=== PATIENT | female | born 1990 | race Caucasian/White ===

== ENCOUNTER → 2020-06-16 15:00 | Outpatient (BNVA) | payer BC, SELFPAY | PROVIDERS: Visit Provider Obstetrics & Gynecology | DX: Z12.4 Encounter for screening for malignant neoplasm of cervix (principal); R10.2 Pelvic and perineal pain | CPT/HCPCS: 88175 ==

== ENCOUNTER → 2020-06-26 13:47 | Outpatient (BNVA) | payer BC, SELFPAY | PROVIDERS: Visit Provider Obstetrics & Gynecology | DX: R10.2 Pelvic and perineal pain (principal) | CPT/HCPCS: 76830 ==

== ENCOUNTER → 2020-08-20 08:30 | Outpatient (BNVA) | payer BC, SELFPAY | PROVIDERS: Visit Provider Obstetrics & Gynecology | DX: Z30.9 Encounter for contraceptive management, unspecified (principal); E66.9 Obesity, unspecified | CPT/HCPCS: 81025; 83525; 84443 ==

== ENCOUNTER → 2021-05-14 11:33 | Outpatient (BNVA) | payer BC, SELFPAY | PROVIDERS: Visit Provider Obstetrics & Gynecology | DX: N92.6 Irregular menstruation, unspecified (principal) | CPT/HCPCS: 84702 ==

== ENCOUNTER → 2021-06-23 10:25 | Outpatient (BNVA) | payer BC, MEDICAID, SELFPAY | PROVIDERS: Visit Provider Obstetrics & Gynecology | DX: Z32.01 Encounter for pregnancy test, result positive (principal) | CPT/HCPCS: 84702 ==

== ENCOUNTER 2022-02-15 05:23 | Inpatient (IN) | payer BC, MEDICAID, SELFPAY ==
--- NOTE | 2022-01-19 11:53 | ANES.PREANE2 ---
Pre-Anesthetic Assessment Height/Weight: Height 1.63 m Operation Date: 02/15/22 07:00 Proposed Procedures p Section Repeat(Not Applicable) - Fred Gilmore MD Familial anesthetic complications: none Was Beta Hugo taken within 24 hours: N/A Was Clonidine taken within 24 hours: N/A Social Tobacco and No alcohol Exam alert, oriented x 3 and regular rate & rhythm Airway Submandibular: within normal limits Cervical ROM: within normal limits Mallampati: Class II Dentition: chipped Pulmonary Chronic Obstructive Pulmonary Disease Anesthetic Plan ASA status: 2 Anesthesia: Regional (specify below) (SAB) Medications/Allergies Home Medications Medication Instructions Recorded Confirmed Last Taken Type venlafaxine 150 mg 150 mg PO DAILY 09/10/20 02/27/21 Unknown History capsule,extended release 24 hr (Effexor XR) dicyclomine 10 mg capsule 10 mg PO TID #90 caps 02/27/21 02/27/21 Unknown Rx norgestrel 0.3 mg-ethinyl 1 tab PO DAILY #28 tabs 02/27/21 02/27/21 Unknown Rx estradiol 30 mcg tablet (Low-Ogestrel (28)) phentermine 37.5 mg capsule 37.5 mg PO DAILY #14 caps 02/27/21 02/27/21 Unknown Rx Allergies Allergy/AdvReac Type Severity Reaction Status Date / Time No Known Allergies Allergy Verified 06/23/21 10:42 [facility] Anesthesia Medical History Anxiety Cervical cancer screening Depression History of melanoma 2017 Surgical History History of 2019 Family History Mother Cancer kidney cancer, skin cancer Father Cancer esophageal cancer Grandfather Cancer colon cancer, maternal Family/Other Cancer maternal uncle, lung cancer spread to bone Denies family history of Diabetes Hyperlipidemia Chronic kidney disease (CKD) Anesthesia complication Bleeding disorder Hypertension Stroke Data Anesthesia Cardiac Studies: No Data to Display
[2022-02-15] VITALS (35 sets, daily range): BP systolic 109–138; BP diastolic 58–91; PULSE 63–88; RESP 16–18; TEMP 36–36.7; O2SAT 90–100; BMI 34.2
[2022-02-15] MEDS: lactated ringers 1,000 ML 999 ML IV ×2 (05:54→06:55)
[2022-02-15 06:04] LABS: Basophils % 0.2 %; Eosinophils # 0.1 10^3/uL (0.0-0.8); Eosinophils % 0.9 %; Hematocrit 33.9 % (37.0-47.0); Lymphocytes # 3.1 10^3/uL (0.8-4.8); Lymphocytes % 24.1 %; Mean Corpuscular HGB Conc 32.4 g/dL (30.0-36.0); Mean Corpuscular Hemoglobin 25.6 pg (28.0-34.0); Mean Platelet Volume 10.4 fL (7.4-10.4); Monocytes # 0.7 10^3/uL (0.2-0.9); Monocytes % 5.2 %; Neutrophils # 8.82 10^3/uL (1.8-7.7); Nucleated Red Blood Cells % 0 %; Platelet Count 325 10^3/cmm (130-400); Red Blood Count 4.29 10^6/uL (4.1-5.3); Red Cell Distribution Width 14.7 % (12.1-15.1); White Blood Count 12.8 10^3/uL (4.0-10.0)
--- NOTE | 2022-02-15 06:43 | P.HP_ITS ---
Providers/Chief Complaint Admitting Physician: Fred Gilmore MD Chief Complaint: EDC 02/18/22 HPI TITLE CHECKER History of Present Illness Irene Macdonald is a 31 year old 2 para 0-1-0-1 female at 39 weeks estimated gestational age presenting for a repeat section. has been unremarkable. We discussed the risks and benefits of a versus a repeat section. After discussing the risks and benefits of each she decided to proceed with a repeat section. Her labs been largely unremarkable. Her blood type is B+ her antibody screen is negative she is rubella immune. The remainder of her infectious disease panel was within normal limits. Present Details : 2 Para: 1 Review of Systems General: Reports: 10 or more systems reviewed and unremarkable except in HPI and below Const: Reports: fatigue; Denies: fever(s) Eyes: Denies: change in vision Card: Denies: chest pain Musc: Reports: back pain You/Lymph: Denies: easy bruising Medications/Allergies Home Medications Medication Instructions Recorded Confirmed Last Taken Type escitalopram oxalate 20 mg tablet mg 02/15/22 Unknown History Allergies Allergy/AdvReac Type Severity Reaction Status Date / Time No Known Allergies Allergy Verified 06/23/21 10:42 PFSH TITLE CHECKER PFSH: Medical History (Updated 02/15/22 @ 06:54 by Fred Gilmore MD) Anxiety Cervical cancer screening Depression History of melanoma 2018 Surgical History (Updated 02/15/22 @ 06:53 by Fred Gilmore MD) History of 2019 Family History Mother Cancer kidney cancer, skin cancer Father Cancer esophageal cancer Grandfather Cancer colon cancer, maternal Family/Other Cancer maternal uncle, lung cancer spread to bone Denies family history of Diabetes Hyperlipidemia Chronic kidney disease (CKD) Anesthesia complication Bleeding disorder Hypertension Stroke Other Female Reproductive History: Hx Age of Menarche: 14 History History History 1 Term 0 1 Miscarriages/Ectopic 0 Living Children 1 Vitals/I&O/Wt Last Vital Signs Pulse 71 02/15/22 06:07 BP 119/73 02/15/22 06:07 O2 Del Method 02/15/22 05:21 Weight last 48 hrs Weight 193 lb Physical Exam Const: COMMON NORMALS: patient oriented x3 and alert HENMT: COMMON NORMALS: moist oral mucous membranes HEAD & SCALP: normal to inspection Chest: COMMONS NORMALS: normal inspection of the chest Resp: COMMON NORMALS: clear to auscultation bilaterally AUSCULTATION: clear to auscultation bilaterally Cardio: COMMON NORMALS: regular rate and regular rhythm RATE: regular rate RHYTHM: regular rhythm GI: INSPECTION: Yes normal to inspection and Yes other (Gravid) Extremity: COMMON NORMALS: normal to inspection GENERAL: Yes edema (Trace) Neuro: COMMON NORMALS: patient oriented x3, moves all extremities and no sensory deficits noted SENSORIUM/ORIENTATION: Yes alert Psych: COMMON NORMALS: mental status grossly normal Skin: COMMON NORMALS: no rashes or lesions noted GENERAL SKIN EXAM: no rashes or lesions noted Data : 02/15/22 05:48 A&P Assessment and plan (1) History of : We will proceed with a repeat section. We have discussed the risks including the risks of bleeding, infection, and damage to intra-abdominal organs. She understands these risks and wishes to proceed. (2) Depression with anxiety: Currently on Lexapro. We will continue her medication when she is taking p.o. postoperatively due to her high risk of depression. (3) 39 weeks gestation of : (4) Tobacco use affecting in third trimester, antepartum: I will continue to encourage the patient to stop smoking. We discussed ways to help her stop smoking multiple times during her . Attestations Medical Necessity Statement*: I anticipate routine and post C- section care Coding Level of Care Code Acute Assistant Teacher Primary for Leonard Cooper Diagnoses History of Z98.891 Depression with anxiety F41.8 39 weeks gestation of Z3A.39 Tobacco use affecting in third trimester, antepartum O99.333
[2022-02-15] MEDS: metoclopramide 5 mg/mL SDV 2 mL 10 MG IVP (06:52)
[2022-02-15] MEDS: famotidine 20 mg/2 mL INJ IVP (06:52)
[2022-02-15] MEDS: citric acid-sodium citrate 30 mL UDC PO (06:52)
--- NOTE | 2022-02-15 06:55 | P.ANESUD_ITS ---
Pre-Anesthetic Update Pre-Anesthetic Assessment: Date of Surgery/Procedure: 02/15/22 Preop Jennifer gnosis: IUP Proposed Procedure: Operation Date: 02/15/22 07:00 Proposed Procedures p Section Repeat(Not Applicable) - Fred Gilmore MD Any changes to Pre-Anesthetic Assessment?: No Last Intake: 00:00 Labs Last 48hrs: Short CBC 02/15/22 Range/Units 05:48 WBC 12.8 H (4.0-10.0) 10^3/ uL Hgb 11.0 L (11.5-15.3) g/dL Hct 33.9 L (37.0-47.0) % MCV 79.0 L (81-99) fl Plt Count 325 (130-400) 10^3/c mm Neut % (Auto) 69.0 % Neut # (Auto) 8.82 H (1.8-7.7) 10^3/u L Vitals: Pulse Rate 71 02/15/22 06:07 Pulse Rhythm 02/15/22 05:21 Pulse Strength 3+ Normal 02/15/22 05:21 Respiratory Rate 16 02/15/22 05:31 Respiratory Effort Non-Labored 02/15/22 05:21 Respiratory Depth Normal 02/15/22 05:21 Respiratory Patter n 02/15/22 05:21 Blood Pressure 119/73 02/15/22 06:07 Oxygen Delivery Me thod 02/15/22 05:21 Exam: Pre-Anes Outpt Exam: alert, oriented x 3, clear to auscultation bilaterally and regular rate & rhythm Cardiac Studies: No Data to Display
[2022-02-15] MEDS: ceFAZolin 2,000 MG in sodium chloride 0.9% (plus) 50 ML 100 MG IV (06:56)
--- NOTE | 2022-02-15 08:30 | P.OP_ITS ---
Operative Report Date of procedure: February 15, 2022 Pre-op diagnosis: 31-year-old 2 female at 39 weeks estimated gestational age presenting for a repeat section Post-op diagnosis: Status post section Procedure done: Lower transverse section Specimens removed/disposition: 1. Female infant with a weight of 10 ounces and Apgars of 8 and 9 2. Placenta with a three-vessel cord delivered intact Surgeon: Fred Gilmore Estimated blood loss (mL): 800 Procedure: The patient was brought back to the operating room where she was prepped and draped in usual sterile fashion. Anesthesia was found to be adequate. A lower transverse skin incision was then made with a #10 blade. I then dissected down to the underlying subcutaneous tissue until arriving at the prerectal fascia. The fascia was then nicked with the scalpel bilaterally. The fascial incisions were then carried laterally with Almanzar scissors. Attention was then turned to the superior aspect of the incision which was grasped with kochers and tented up away from the underlying rectus abdominis muscles. The muscles were then dissected away from the fascia manually, and later with Almanzar scissors. Attention was then turned to the inferior aspect of the incision, and the fascia was dissected away from the underlying muscle in similar fashion. The rectus abdominis muscles were then spread manually. The peritoneum was entered manually. Excellent visualization of the uterus was noted. A lower transverse uterine incision was then made with a #10 blade. Upon arriving at the intrauterine cavity, the uterine incision was then extended manually. The infant was noted to be in vertex position. The baby was delivered without difficulty. After delivery of the head, the mouth and nose were suctioned at the site of the incision. Light meconium was noted. There was no nuchal cord. The remainder of the body was then delivered and placed on the abdomen. The cord was cut and clamped. The baby was then handed to the waiting nurse. The placenta was removed intact. The uterus was externalized. The intrauterine cavity was cleansed of any remaining debris. The uterine incision was reapproximated in 2 layers. The first layer was performed with 0 Vicryl in a running locked stitch. The second layer was an imbricating stitch also using 0 Vicryl. There were several areas along the incision that continued to bleed. Several [id number] stitches were placed until excellent hemostasis was noted. The uterus was replaced into the abdomen. The peritoneum was then irrigated with warm saline. I reexamined the uterine incision and found it to be hemostatic. The rectus abdominis muscles were then reapproximated using 0 Vicryl in a running stitch. The fascia was then reapprox imated using 0 Vicryl in running stitch. The subcutaneous tissue was reapproximated using 0 Vicryl in a running stitch. The skin was reapproximated using nuria. A sterile dressing was placed. All counts were correct x2. Both the mother and baby were in stable condition.
[2022-02-15] MEDS: docusate sodium 100 mg Capsule PO ×2 (11:40→18:07)
[2022-02-15] MEDS: escitalopram 10 mg Tablet 20 MG PO (11:41)
[2022-02-15] MEDS: acetaminophen 325 mg Tablet 650 MG PO (11:41)
--- NOTE | 2022-02-15 13:45 | PC.NURSE ---
This nurse assisted pt with changing her gown and placing new chux pads underneath her. As this nurse was removing the extra blankets on the patient a small black square box fell out of the blankets. This nurse asked pt what is was. Pt reported it was a vape. As nurse was turning pt side to side changing chux pads out another white vape pen was found in the patients bed. This nurse informed pt that vapes are prohibited in the hospital and that I would have to lock the vapes up in a secured cabinet. I educated pt that if someone wanted to take the vapes out to her car that would be fine too, but they cannot be in the hospital. Pt verbalized understanding.
[2022-02-15] MEDS: ketorolac 30 mg/mL INJ IVP ×2 (14:38→21:02)
[2022-02-15] MEDS: dextrose 5%-lactated ringers 1,000 ML 125 ML IV (14:39)
[2022-02-15] MEDS: HYDROcodone-acetaminophen 5-325 mg Tablet PO (18:06)
[2022-02-15 21:20] LABS: Hemoglobin 8.5 g/dL (11.5-15.3); Mean Corpuscular HGB Conc 32.7 g/dL (30.0-36.0); Mean Corpuscular Hemoglobin 26.3 pg (28.0-34.0); Mean Corpuscular Volume 80.5 fl (81-99); Mean Platelet Volume 9.9 fL (7.4-10.4); Platelet Count 236 10^3/cmm (130-400); Red Blood Count 3.23 10^6/uL (4.1-5.3); Red Cell Distribution Width 14.6 % (12.1-15.1); White Blood Count 11.1 10^3/uL (4.0-10.0)
--- NOTE | 2022-02-15 22:00 | PC.NURSE ---
Patient walked one lap around the OB unit and tolerated it well. She was then helped to the bathroom to change her gown and clean up. I instructed her that we will walk another lap in an hour or so and then if she tolerates it well we can remove her catheter as her urine output has been normal so far this shift. Patient was educated on increasing her fluid intake and verbalized understanding and is doing well at this time.
--- NOTE | 2022-02-16 00:55 | PC.NURSE ---
Patient pushed her call light and when the nurse walked got into the room and said that her IV got pulled out. I helped her take the tape off the rest of the way and put the catheter in the biohazard box. Catheter was intact upon removal.
--- NOTE | 2022-02-16 01:30 | PC.NURSE ---
Patient pushed her call light and said that she is still struggling to get baby to latch on for breast feeding. This nurse has witnessed mother attempt to feed baby with different positions and baby will latch for a couple seconds and then begin crying again. I educated her on making sure that baby is awake even if she has to undress baby temporarily. She verbalized understanding. After attempting to help baby latch for a while I took a handle breast pump into the room and let mom know she can try to express some milk and use a syringe to put against her breast during breast feeding to help baby stay latched. She agreed. She also asked if it would be okay to supplement with some formula as she is worried baby will go hungry. I took some formula into her room.
[2022-02-16 02:20] VITALS: BP 113/71; PULSE 88; RESP 18; TEMP 36.6
[2022-02-16] MEDS: HYDROcodone-acetaminophen 5-325 mg Tablet PO ×4 (02:20→16:39)
--- NOTE | 2022-02-16 02:20 | PC.NURSE ---
Lara catheter removed at this time patient tolerated procedure well
[2022-02-16] MEDS: prenatal vitamin Capsule 1 CAP PO (07:42)
[2022-02-16] MEDS: ferrous sulfate EC 325 mg Tablet PO (07:42)
--- NOTE | 2022-02-16 07:43 | PM.OBGYDC ---
Discharge Providers WIRELESS RETAIL MANAGER Date of Admission: 02/15/22 05:23 Date of Discharge: 02/16/22 Attending Provider at Admission: Fred Gilmore MD Attending Provider at Discharge: Fred Gilmore MD Diagnoses at Discharge Discharge Diagnosis (1) History of : Status: Acute Permanent problem details: 2020 (2) Depression with anxiety: Status: Acute (3) 39 weeks gestation of : Status: Acute (4) Tobacco use affecting in third trimester, antepartum: Status: Acute Reason for Visit Reason for Visit: EDC 02/18/22 Hospital Course Hospital Course Patient presented to the hospital for a scheduled repeat section. The was unremarkable. The patient's course was also unremarkable. She has been breast-feeding during her hospital stay. Her pain has been well controlled. Her bleeding has been within normal limits. Information Peripartum Data: Delivery Method: Physical Exam Narrative: She is in no acute distress Lungs are clear auscultation bilaterally Her heart has a regular rate and rhythm Her fundus is below the umbilicus and firm Her dressing is clean, dry and intact Her extremities have trace edema Urinary Catheter Management: Lara: Cath Placed During This Visit: yes, but has since been removed by the nurse Reason for Continuing Indwelling Catheter: Decision to DC Catheter Urinary Catheter Date of Insertion: 02/15/22 Urinary Catheter Time of Insertion: 07:12 Date Urinary Catheter Removed: 02/16/22 Time Urinary Catheter Discontinued: 02:20 History History History 1 Term 0 1 Miscarriages/Ectopic 0 Living Children 1 Discharge Data Studies Completed and Pending Pending at discharge Category Date Time Status CBC Auto Diff [Complete Blood Count w/Auto] Routine Lab 02/16/22 13:41 Ordered Laboratory Results WBC 11.1 10^3/uL (4.0-10.0) H 02/15/22 21:00 RBC 3.23 10^6/uL (4.1-5.3) L 02/15/22 21:00 Hgb 8.5 g/dL (11.5-15.3) L 02/15/22 21:00 Hct 26.0 % (37.0-47.0) L 02/15/22 21:00 MCV 80.5 fl (81-99) L 02/15/22 21:00 MCH 26.3 pg (28.0-34.0) L 02/15/22 21:00 MCHC 32.7 g/dL (30.0-36.0) 02/15/22 21:00 RDW 14.6 % (12.1-15.1) 02/15/22 21:00 Plt Count 236 10^3/cmm (130-400) 02/15/22 21:00 MPV 9.9 fL (7.4-10.4) 02/15/22 21:00 Neut % (Auto) 69.0 % 02/15/22 05:48 Lymph % (Auto) 24.1 % 02/15/22 05:48 [place] % (Auto) 5.2 % 02/15/22 05:48 Eos % (Auto) 0.9 % 02/15/22 05:48 Baso % (Auto) 0.2 % 02/15/22 05:48 Neut # (Auto) 8.82 10^3/uL (1.8-7.7) H 02/15/22 05:48 Lymph # (Auto) 3.1 10^3/uL (0.8-4.8) 02/15/22 05:48 [place] # (Auto) 0.7 10^3/uL (0.2-0.9) 02/15/22 05:48 Eos # (Auto) 0.1 10^3/uL (0.0-0.8) 02/15/22 05:48 Baso # (Auto) 0.0 10^3/uL (0.0-0.1) 02/15/22 05:48 Nucleated RBC % (auto) 0 % 02/15/22 05:48 Nucleated RBCs # 0.0 /100WBC 02/15/22 05:48 Vitals Last Vital Signs Temp 97.9 F 02/16/22 02:20 Pulse 88 02/16/22 02:20 Resp 18 02/16/22 02:20 BP 113/71 02/16/22 02:20 Pulse Ox 97 02/15/22 23:00 O2 Del Method 02/15/22 23:00 Discharge Plan Discharge Patient Disposition: Home Condition: Stable Prescriptions: New hydrocodone-acetaminophen 5-325 mg Tablet 1 tab PO Q6H PRN (Reason: Moderate To Severe Pain) Qty: 28 0RF docusate sodium 100 mg Capsule 100 mg PO BID Qty: 10 0RF ibuprofen 800 mg Tablet 800 mg PO Q8H Qty: 45 0RF -U 106.5-1 mg Capsule 1 cap PO BREAKFAST Qty: 100 0RF Continued escitalopram oxalate 20 mg tablet 20 mg PO DAILY Discharge Orders: Discharge Order (Routine); Ordered 02/16/22 Ordered By: Fred Gilmore Referrals: Fred Gilmore MD [Physician] - 4-7 days Discharge Diet: Usual diet Discharge Activity: Limit activity as instructed Patient Instructions: Opioid Safety Discharge Attestations WIRELESS RETAIL MANAGER Time Spent in Discharge Care*: less than 30 min Coding Level of Care Code Acute Car Pre Cooler for g Fwd Diagnoses History of Z98.891 Depression with anxiety F41.8 39 weeks gestation of Z3A.39 Tobacco use affecting in third trimester, antepartum O99.333
[2022-02-16] MEDS: escitalopram 10 mg Tablet 20 MG PO (10:12)
[2022-02-16] MEDS: ibuprofen 800 mg tablet PO ×2 (10:12→15:51)
[2022-02-16] MEDS: docusate sodium 100 mg Capsule PO (10:12)
[2022-02-16 10:15] VITALS: BP 134/64; PULSE 79; TEMP 36.6
--- NOTE | 2022-02-16 12:57 | PC.NURSE ---
Patient reported that she was able to latch infant independently. Infant was noted to be latched with wide mouth and large jaw movements. Patient reported that latch was comfortable.
--- NOTE | 2022-02-16 14:02 | PC.NURSE ---
1235 This personal lines underwriter took pt towels and soap and set up shower with shower chair for patient to take shower. Educated patient on incision care. Pt verbalized understanding. Pt requested pain medication at this. Pt given 2 [place]. Told pt that I would be back after her shower to draw her blood. Returned to pt room at 1340 to draw her blood. Pt was still in bed in the same place she has been since I arrived at 0700. Collected CBC and took baby to the nursery so that patient may shower. Educated patient to push her call light when she was finished and educated her where the call light cord pull was in the shower in case she needed help. Pt verbalized understanding. At 1400 Damon Michael RN entered pt room to check on her and she was still in bed and was talking on her phone. At 1410 baby was taken back to mothers room due to being fussy and showing hunger cues. Patient was still in bed at this time. Damon Michael RN educated pt to get up out of bed and to chair to feed baby. Pt was educated about getting out of bed every 2-3 hours and walking around to prevent post operative complications especially since pt had a DVT with her previous . Pt verbalized understanding.
[2022-02-16 14:10] LABS: Basophils % 0.1 %; Eosinophils # 0.1 10^3/uL (0.0-0.8); Eosinophils % 0.4 %; Hematocrit 28.8 % (37.0-47.0); Hemoglobin 9.1 g/dL (11.5-15.3); Lymphocytes # 2.4 10^3/uL (0.8-4.8); Lymphocytes % 17.6 %; Mean Corpuscular HGB Conc 31.6 g/dL (30.0-36.0); Mean Corpuscular Hemoglobin 25.5 pg (28.0-34.0); Mean Corpuscular Volume 80.7 fl (81-99); Mean Platelet Volume 9.8 fL (7.4-10.4); Monocytes # 0.6 10^3/uL (0.2-0.9); Monocytes % 4.6 %; Neutrophils # 10.59 10^3/uL (1.8-7.7); Neutrophils % 76.8 %; Nucleated Red Blood Cells % 0 %; Platelet Count 290 10^3/cmm (130-400); Red Blood Count 3.57 10^6/uL (4.1-5.3); White Blood Count 13.8 10^3/uL (4.0-10.0)
[2022-02-16 16:32] VITALS: TEMP 36.4
[2022-02-16 16:33] VITALS: BP 128/82; PULSE 100
[2022-02-16 17:10] VITALS: BP 128/82; PULSE 100; RESP 16; TEMP 36.6
== END 2022-02-16 17:10 | disposition home or self-care (01) | DRG 788 ==
PROVIDERS: Admitting Provider Family Medicine; Visit Provider Family Medicine
PROC: 10D00Z1 Extraction of Products of Conception, Low, Open Approach (ICD-10-PCS; CPT 59514; principal; 2022-02-15 07:00)
DX: O34.219 Maternal care for unspecified type scar from previous cesarean delivery (principal); Z3A.39 39 weeks gestation of pregnancy; Z37.0 Single live birth; O99.334 Smoking (tobacco) complicating childbirth; O99.344 Other mental disorders complicating childbirth; O77.0 Labor and delivery complicated by meconium in amniotic fluid; F41.8 Other specified anxiety disorders; Z85.820 Personal history of malignant melanoma of skin; Z86.718 Personal history of other venous thrombosis and embolism
CPT/HCPCS: 12345; 36415; 51702; 59025; 85025; 85027; 96374; 96376; 98960; 99211; J0690; J1200; J1885; J2274; J2370; J2405; J2765; J3010; J3490; J7120; J7121

== ENCOUNTER 2022-06-18 22:06 | Emergency (ER) | payer BC, MEDICAID, SELFPAY ==
[2022-06-18 22:15] VITALS: BP 123/82; PULSE 85; RESP 18; TEMP 36.7; O2SAT 97
--- NOTE | 2022-06-18 22:33 | USR_ITS ---
PROCEDURE INFORMATION: Exam: US Abdomen, Limited; Right Upper Quadrant Exam date and time: 06/18/2022 11:00 PM Age: 32 years old Clinical indication: Abdominal pain; Generalized; Additional info: Ruq pain TECHNIQUE: Imaging protocol: Real time ultrasound of the abdomen with image documentation. Limited exam focused on the right upper quadrant. COMPARISON: No relevant prior studies available. FINDINGS: Liver: Unremarkable liver, no focal abnormality. Gallbladder: Several very small shadowing gallstones are visible within the gallbladder. The gallbladder appears somewhat distended, transverse diameter up to about 4.5 cm, length of 10-11 cm. No definite gallbladder wall thickening or pericholecystic fluid. Biliary ducts: Mild biliary tree dilation, with common duct measuring up to 6-7 mm. No visible common duct stone by ultrasound. Correlation with laboratory/bilirubin levels may be helpful to determine if there is any significant biliary obstruction. Pancreas: Visible pancreas unremarkable. Right kidney: Images of the right kidney show no hydronephrosis. US/US gall bladder [id number] IMPRESSION: 1. Cholelithiasis, see additional details above. 2. Mild biliary tree dilation, see above discussion. 3. Other findings discussed above.
--- NOTE | 2022-06-18 22:39 | ED_ITS ---
HPI - Abdominal Pain General: Chief Complaint: Abdominal Pain Stated Complaint: abdomen pain, back pain Time Seen by Provider: 06/18/22 22:24 Source: patient History of Present Illness: 32-year-old female with a history of abdominal pain that began 30 minutes prior to arrival or so. She endorses an intense pain in a bandlike fashion around her epigastrium right and left upper quadrants. It radiates to her back to some degree. She is nauseated. She has not vomited. No fever. No diarrhea. No blood in the stool. She states that she took a test a few days ago and it was positive. The patient still has a gallbladder. MD elicited complaint: abdominal pain Pertinent past history: none Onset (ago): minute(s) Pain Consistency: constant Location: Epigastric, LUQ and RUQ Severity: moderate Quality: stabbing and aching Radiation: back Migration to: no migration Relieving factors: nothing Associated Symptoms: Denies coffee ground emesis, constipation, diarrhea, fever(s), loose stools and vomiting Review of Systems Const: Denies: fever(s) ENMT: Denies: throat pain Card: Denies: chest pain or palpitations Resp: Denies: dyspnea, productive cough or non-productive cough GI: Denies: vomiting, coffee ground emesis, diarrhea or constipation Psych: Reports: anxiety PFSH ED PFSH: Medical History Anxiety Cervical cancer screening Depression History of melanoma 2018 Surgical History History of 2019 Family History Mother Cancer kidney cancer, skin cancer Father Cancer esophageal cancer Grandfather Cancer colon cancer, maternal Family/Other Cancer maternal uncle, lung cancer spread to bone Denies family history of Diabetes Hyperlipidemia Chronic kidney disease (CKD) Anesthesia complication Bleeding disorder Hypertension Stroke Physical Exam Const: COMMON NORMALS: no acute distress GENERAL APPEARANCE: anxious; not comfortable and not frail appearing HENMT: COMMON NORMALS: normocephalic, atraumatic and Normal external nose present HEAD & SCALP: normocephalic and atraumatic FACE & SINUS: normal facial exam and face symmetric NOSE: Normal external nose present Eye: COMMON NORMALS: Equal, round and reactive pupils present and EOMs intact bilaterally PUPIL: Yes Equal, round and reactive pupils present Neck/C-Spine: GENERAL: Yes trachea midline Chest: CHEST: Yes Symmetrical chest wall rise Resp: COMMON NORMALS: normal respiratory effort, No retractions, No use of accessory muscles and clear to auscultation bilaterally AUSCULTATION: clear to auscultation bilaterally Cardio: COMMON NORMALS: regular rate and regular rhythm RATE: regular rate RHYTHM: regular rhythm GI: COMMON NORMALS: Normal to inspection, nondistended, normoactive bowel sounds present PALPATION: Yes Tenderness to palpation present (GI) (Epigastric) Details: RUQ Extremity: COMMON NORMALS: no pedal edema Neuro: DIDI COMA SCALE: document GCS findings [place] coma scale eye opening: Spontaneous Didi coma scale verbal response: Orientated Didi coma scale motor response: Obey commands [place] coma scale total score: 15 SENSORY EXAM: Yes extremities (intact) Psych: COMMON NORMALS: speech normal SPEECH: Yes normal speech Skin: COMMON NORMALS: no rashes or lesions noted GENERAL SKIN EXAM: no rash es or lesions noted Course Vital Signs: Vital signs: Vital Signs Temperature 98.0 F 06/18/22 22:15 Pulse Rate 81 06/18/22 22:47 Respiratory Rate 18 06/18/22 22:47 Blood Pressure 120/74 06/18/22 23:48 Pulse Oximetry 100 06/18/22 23:48 Oxygen Delivery Me thod 06/18/22 22:15 MDM - Abdominal Pain Medical Decision Making Symptoms are resolved after IV Zofran, morphine, and fluid. Clinically she looks good. White blood cell count is 14 but without any left shift. Her potassium is 3.3. CRP is only 3. Liver enzymes are normal. Gallbladder ultrasound shows cholelithiasis with mild biliary tree dilatation but no cholec ystitis. Urinalysis is negative. With cholelithiasis, no liver enzyme elevation, and only minimal biliary tree dilatation, with resolution of her symptoms, and no fever, this is more likely biliary colic in a patient. Her test is positive. She plans on following up with Dr. Gilmore regarding her . She will be allowed discharged to return if any worsening symptoms. Lab Data 06/18/22 22:40 06/18/22 22:40 Labs/Radiology: Radiology Impressions Gallbladder Ultrasound 06/18/22 22:33 IMPRESSION: 1. Cholelithiasis, see additional details above. 2. Mild biliary tree dilation, see above discussion. 3. Other findings discussed above. Laboratory Results WBC 13.8 10^3/uL (4.0-10.0) H 06/18/22 22:40 RBC 4.52 10^6/uL (4.1-5.3) 06/18/22 22:40 Hgb 12.1 g/dL (11.5-15.3) 06/18/22 22:40 Hct 37.1 % (37.0-47.0) 06/18/22 22:40 MCV 82.1 fl (81-99) 06/18/22 22:40 MCH 26.8 pg (28.0-34.0) L 06/18/22 22:40 MCHC 32.6 g/dL (30.0-36.0) 06/18/22 22:40 RDW 14.6 % (12.1-15.1) 06/18/22 22:40 Plt Count 328 10^3/cmm (130-400) 06/18/22 22:40 MPV 9.7 fL (7.4-10.4) 06/18/22 22:40 Neut % (Auto) 66.0 % 06/18/22 22:40 Lymph % (Auto) 27.8 % 06/18/22 22:40 [place] % (Auto) 4.8 % 06/18/22 22:40 Eos % (Auto) 0.9 % 06/18/22 22:40 Baso % (Auto) 0.1 % 06/18/22 22:40 Neut # (Auto) 9.12 10^3/uL (1.8-7.7) H 06/18/22 22:40 Lymph # (Auto) 3.8 10^3/uL (0.8-4.8) 06/18/22 22:40 [place] # (Auto) 0.7 10^3/uL (0.2-0.9) 06/18/22 22:40 Eos # (Auto) 0.1 10^3/uL (0.0-0.8) 06/18/22 22:40 Baso # (Auto) 0.0 10^3/uL (0.0-0.1) 06/18/22 22:40 Nucleated RBC % (auto) 0 % 06/18/22 22:40 Nucleated RBCs # 0.0 /100WBC 06/18/22 22:40 Sodium 135 mmol/L (136-145) L 06/18/22 22:40 Potassium 3.3 mmol/L (3.5-5.1) L 06/18/22 22:40 Chloride 100 mmol/L (98-107) 06/18/22 22:40 Carbon Dioxide 21 mmol/L (22-29) L 06/18/22 22:40 Anion Gap 17.3 (5-19) 06/18/22 22:40 BUN 11 mg/dL (6-20) 06/18/22 22:40 Creatinine 0.5 mg/dL (0.5-0.9) 06/18/22 22:40 GFR Calculation 143.9 mL/min (90-130) H 06/18/22 22:40 Glucose 107 mg/dL (65-115) 06/18/22 22:40 Calculated Osmolality 280 mOsm/kg (285-295) L 06/18/22 22:40 Calcium 9.2 mg/dL (8.5-10.5) 06/18/22 22:40 Total Bilirubin 0.2 mg/dL (0.15-1.2) 06/18/22 22:40 AST 19 U/L (0-32) 06/18/22 22:40 ALT 12 U/L (0-33) 06/18/22 22:40 Alkaline Phosphatase 70 U/L (35-105) 06/18/22 22:40 C-Reactive Protein 3.0 mg/L (0.0-4.9) 06/18/22 22:40 Total Protein 6.8 g/dL (6.6-8.7) 06/18/22 22:40 Albumin 4.0 g/dL (3.5-5.2) 06/18/22 22:40 Globulin 2.8 g/dL (1.3-4.6) 06/18/22 22:40 Lipase 36 U/L (13-60) 06/18/22 22:40 HCG, Qual Positive (Negative) H 06/18/22 22:40 Urine Color Yellow (Yellow) 06/18/22 22:37 Urine Appearance Clear (CLEAR) 06/18/22 22:37 Urine pH 7 (5-7) 06/18/22 22:37 Ur Specific [place] 1.015 (1.005-1.030) 06/18/22 22:37 Urine Protein Neg (Negative) 06/18/22 22:37 Urine Glucose (UA) Norm (Normal) 06/18/22 22:37 Urine Ketones Negative (Negative) 06/18/22 22:37 Urine Blood Neg (Negative) 06/18/22 22:37 Urine Nitrate Negative (Negative) 06/18/22 22:37 Urine Bilirubin Neg (Negative) 06/18/22 22:37 Urine Urobilinogen Neg mg/dL (Negative) 06/18/22 22:37 Ur Leukocyte Esterase Negative (Negative) 06/18/22 22:37 Urine Opiates Screen Positive ng/mL (Negative) H 06/18/22 22:37 Ur Barbiturates Screen Negative ng/mL (Negative) 06/18/22 22:37 Ur Phencyclidine Scrn Negative ng/mL (Negative) 06/18/22 22:37 Ur Amphetamines Screen Negative ng/mL (Negative) 06/18/22 22:37 U Benzodiazepines Scrn Positive ng/mL (Negative) H 06/18/22 22:37 Urine Cocaine Screen Negative ng/mL (Negative) 06/18/22 22:37 U Marijuana (THC) Screen Negative ng/mL (Negative) 06/18/22 22:37 Discharge Plan Discharge Patient Disposition: Home Clinical Impression: Right upper quadrant abdominal pain, Biliary colic, Early stage of Condition: Stable Prescriptions: No Action sulfamethoxazole-trimethoprim [Bactrim DS] 800-160 mg tablet 1 tab PO BID 10 Days Qty: 20 0RF mupirocin 2 % ointment 1 applic topical BID 21 Days Qty: 15 0RF Rx Instructions: Apply to each nostril and topically BID escitalopram oxalate 20 mg tablet 20 mg PO DAILY Discharge Orders: Discharge ED (Routine); Ordered 06/19/22 Ordered By: Pavel Gamboa Referrals: Fred Gilmore MD [Primary Care Provider] - 4-7 days Patient Instructions: (ED), Biliary Colic (ED) Activity Restrictions/Additional Instructions: Return for fever greater than 100, vomiting liquids or medications, worsening pain, vaginal bleeding, any other concerning symptoms. See your doctor. Follow a liquid diet for the next 12 to 24 hours, then slowly advance as tolerated. Coding Level of Care Code ED Radiologic Technician for Leonard Cooper
[2022-06-18 22:45] VITALS: RESP 18
[2022-06-18] MEDS: morphine 4 mg/mL SDV 1 mL IVP (22:45)
[2022-06-18] MEDS: ondansetron 2 mg/ML SDV 2 mL 4 MG IVP (22:45)
[2022-06-18] MEDS: sodium chloride 0.9% 1,000 ML 999 ML IV (22:46)
[2022-06-18 22:47] VITALS: BP 119/70; PULSE 81; RESP 18; O2SAT 100
[2022-06-18 22:53] LABS: Basophils % 0.1 %; Eosinophils # 0.1 10^3/uL (0.0-0.8); Eosinophils % 0.9 %; Hematocrit 37.1 % (37.0-47.0); Hemoglobin 12.1 g/dL (11.5-15.3); Lymphocytes # 3.8 10^3/uL (0.8-4.8); Lymphocytes % 27.8 %; Mean Corpuscular HGB Conc 32.6 g/dL (30.0-36.0); Mean Corpuscular Hemoglobin 26.8 pg (28.0-34.0); Mean Corpuscular Volume 82.1 fl (81-99); Mean Platelet Volume 9.7 fL (7.4-10.4); Monocytes # 0.7 10^3/uL (0.2-0.9); Monocytes % 4.8 %; Neutrophils # 9.12 10^3/uL (1.8-7.7); Nucleated Red Blood Cells % 0 %; Platelet Count 328 10^3/cmm (130-400); Red Blood Count 4.52 10^6/uL (4.1-5.3); Red Cell Distribution Width 14.6 % (12.1-15.1); White Blood Count 13.8 10^3/uL (4.0-10.0)
[2022-06-18 23:12] LABS: HCG, Serum Qual Positive (Negative)
[2022-06-18 23:19] LABS: Alanine Aminotransferase 12 U/L (0-33); Alkaline Phosphatase 70 U/L (35-105); Anion Gap 17.3 (5-19); Aspartate Amino Transferase 19 U/L (0-32); Blood Urea Nitrogen 11 mg/dL (6-20); Calcium 9.2 mg/dL (8.5-10.5); Carbon Dioxide 21 mmol/L (22-29); Chloride 100 mmol/L (98-107); Globulin 2.8 g/dL (1.3-4.6); Glomerular Filtration Rate 143.9 mL/min (90-130); Glucose 107 mg/dL (65-115); Lipase 36 U/L (13-60); Osmolality Calculated 280 mOsm/kg (285-295); Potassium 3.3 mmol/L (3.5-5.1); Sodium 135 mmol/L (136-145); Total Bilirubin 0.2 mg/dL (0.15-1.2); Total Protein 6.8 g/dL (6.6-8.7)
[2022-06-18 23:48] VITALS: BP 120/74; O2SAT 100
[2022-06-19] LABS: Add Urine Microscopic? NO; Charge for UA Resulting for Rev
[2022-06-19 00:02] LABS: Bilirubin Urine Neg (Negative); Blood Urine Neg (Negative); Glucose Urine UA Norm (Normal); Ketones Urine Negative (Negative); Leukocyte Esterase Urine Negative (Negative); Nitrate Urine Negative (Negative); Protein Urine Neg (Negative); Specific Gravity, Urine 1.015 (1.005-1.030); Urine Appearance Clear (CLEAR); Urine Color Yellow (Yellow); Urobilinogen Urine Neg (Negative); pH Urine 7 (5-7)
[2022-06-19 00:12] LABS: Amphetamines Screen Urine Negative (Negative); Barbiturates Screen Urine Negative (Negative); Benzodiazepines Screen Urine Positive (Negative); Cocaine Screen Urine Negative (Negative); Opiate Screen Urine Positive (Negative); PCP Screen Urine Negative (Negative); THC Screen Urine Negative (Negative)
[2022-06-19 00:50] VITALS: BP 101/66; PULSE 88; RESP 16; O2SAT 100
== END 2022-06-19 00:53 | disposition home or self-care (01) ==
PROVIDERS: Emergency Provider Emergency Medicine; PCP Family Medicine
DX: O26.891 Other specified pregnancy related conditions, first trimester (principal); O99.611 Diseases of the digestive system complicating pregnancy, first trimester; K80.20 Calculus of gallbladder without cholecystitis without obstruction; Z3A.00 Weeks of gestation of pregnancy not specified; R10.11 Right upper quadrant pain
CPT/HCPCS: 76705; 80053; 80306; 81003; 83690; 84703; 85025; 86140; 96361; 96374; 96375; 99285; J2270; J2405; J7030

== ENCOUNTER 2022-06-21 03:30 | Emergency (ER) | payer BC, MEDICAID, SELFPAY ==
[2022-06-21 03:33] VITALS: BP 128/67; PULSE 93; RESP 16; TEMP 36.8; O2SAT 100; BMI 29.2
--- NOTE | 2022-06-21 03:45 | USR_ITS ---
PROCEDURE INFORMATION: Exam: US Abdomen, Limited; Right Upper Quadrant Exam date and time: 06/21/2022 3:57 AM Age: 32 years old Clinical indication: Abdominal pain; Acute; ; Patient HX: This is 2nd gb attack. ; Additional info: Ruq pain. HX of mild biliary tree dilitation TECHNIQUE: Imaging protocol: Real time ultrasound of the abdomen with image documentation. Limited exam focused on the right upper quadrant. COMPARISON: US gall bladder [id number] 06/18/2022 11:00 PM FINDINGS: Liver: Liver is 17.3 cm, mildly echogenic. Slight intrahepatic biliary dilation has improved. Gallbladder: Multiple gallstones are visualized. No overt gallbladder wall thickening. Biliary ducts: The CBD measures 4 mm. Pancreas: The pancreas is not well seen due to overlying bowel gas. It shows no focal abnormality, however. Right kidney: The right kidney is 11.5 cm in length. It shows no solid mass or hydronephrosis. US/US gall bladder [id number] IMPRESSION: 1. Cholelithiasis with no strong sonographic evidence of cholecystitis. 2. Nondilated CBD. Possible slight intrahepatic biliary dilation appears improved from 3 days ago. 3. Liver is large and mildly steatotic.
[2022-06-21 04:07] VITALS: BP 118/49; PULSE 85; O2SAT 100
[2022-06-21 04:13] LABS: Basophils % 0.2 %; Eosinophils # 0.2 10^3/uL (0.0-0.8); Eosinophils % 1.5 %; Hematocrit 38.8 % (37.0-47.0); Hemoglobin 12.2 g/dL (11.5-15.3); Lymphocytes % 23.9 %; Mean Corpuscular HGB Conc 31.4 g/dL (30.0-36.0); Mean Corpuscular Hemoglobin 26.7 pg (28.0-34.0); Mean Corpuscular Volume 84.9 fl (81-99); Mean Platelet Volume 9.7 fL (7.4-10.4); Monocytes # 0.5 10^3/uL (0.2-0.9); Monocytes % 3.6 %; Neutrophils # 8.91 10^3/uL (1.8-7.7); Neutrophils % 70.5 %; Nucleated Red Blood Cells % 0 %; Platelet Count 296 10^3/cmm (130-400); Red Blood Count 4.57 10^6/uL (4.1-5.3); Red Cell Distribution Width 14.8 % (12.1-15.1); White Blood Count 12.7 10^3/uL (4.0-10.0)
[2022-06-21] MEDS: ondansetron 2 mg/ML SDV 2 mL 4 MG IVP (04:20)
[2022-06-21] MEDS: morphine 4 mg/mL SDV 1 mL IVP (04:23)
--- NOTE | 2022-06-21 04:23 | W.ED.ABDPA2 ---
HPI - Abdominal Pain General: Chief Complaint: Abdominal Pain Stated Complaint: ABD Pain Possible Gall Bladder Time Seen by Provider: 06/21/22 03:45 Source: patient History of Present Illness: Healthy 32-year-old female seen by me 2 days ago for right upper quadrant pain. She notes that her symptoms had resolved on discharge, but woke her up this morning with intense right upper quadrant pain. She vomited one time at home. When pain worsened, she became concerned and came back to the emergency department. No fever. No diarrhea. Pain has actually improved significantly now after arrival. MD elicited complaint: abdominal pain Pertinent past history: other Onset (ago): hour(s) Pain Consistency: constant Location: RUQ Severity: similar to previous episodes Quality: stabbing Radiation: none Migration to: no migration Exacerbating factors: movement Relieving factors: nothing Associated Symptoms: Reports nausea and vomiting; Denies chills, diarrhea, dysuria, fever(s), hematemesis, loose stools and poor appetite Review of Systems Const: Denies: fever(s) or chills ENMT: Denies: throat pain Card: Denies: chest pain or palpitations Resp: Denies: dyspnea, productive cough or non-productive cough GI: Reports: nausea and vomiting; Denies: hematemesis or diarrhea : Denies: dysuria or vaginal bleeding PFSH ED PFSH: Medical History Anxiety Cervical cancer screening Depression History of melanoma 2018 Surgical History History of 2019 Family History Mother Cancer kidney cancer, skin cancer Father Cancer esophageal cancer Grandfather Cancer colon cancer, maternal Family/Other Cancer maternal uncle, lung cancer spread to bone Denies family history of Diabetes Hyperlipidemia Chronic kidney disease (CKD) Anesthesia complication Bleeding disorder Hypertension Stroke Physical Exam Const: COMMON NORMALS: no acute distress GENERAL APPEARANCE: cooperative; not ill appearing and not frail appearing HENMT: COMMON NORMALS: normocephalic, atraumatic and Normal external nose present HEAD & SCALP: normocephalic and atraumatic FACE & SINUS: normal facial exam and face symmetric NOSE: Normal external nose present Eye: COMMON NORMALS: Equal, round and reactive pupils present and EOMs intact bilaterally PUPIL: Yes Equal, round and reactive pupils present Neck/C-Spine: GENERAL: Yes trachea midline Chest: CHEST: Yes Symmetrical chest wall rise Resp: COMMON NORMALS: normal respiratory effort, No retractions, No use of accessory muscles and clear to auscultation bilaterally AUSCULTATION: clear to auscultation bilaterally Cardio: COMMON NORMALS: regular rate and regular rhythm RATE: regular rate RHYTHM: regular rhythm GI: COMMON NORMALS: Normal to inspection, nondistended, normoactive bowel sounds present PALPATION: Yes Tenderness to palpation present (GI) Details: RUQ Extremity: COMMON NORMALS: no pedal edema Neuro: DIDI COMA SCALE: document GCS findings Didi coma scale eye opening: Spontaneous [place] coma scale verbal response: Orientated Didi coma scale motor response: Obey commands [place] coma scale total score: 15 SENSORY EXAM: Yes extremities (intact) Psych: COMMON NORMALS: speech normal SPEECH: Yes normal speech Skin: COMMON NORMALS: no rashes or lesions noted GENERAL SKIN EXAM: no rashes or lesions noted Course Vital Signs: Vital signs: Vital Signs Temperature 98.3 F 06/21/22 03:33 Pulse Rate 74 06/21/22 05:30 Respiratory Rate 16 06/21/22 05:30 Blood Pressure 96/57 06/21/22 05:30 Pulse Oximetry 100 06/21/22 05:30 Oxygen Delivery Me thod 06/21/22 04:07 MDM - Abdominal Pain Medical Decision Making Symptoms are essentially resolved. White blood cell count is 12.7. No left shift. CRP is 3. Lipase is normal. Urinalysis is negative. Gallbladder ultrasound reveals resolution of biliary tree dilatation that was present 2 days ago. No cholecystitis. Liver enzymes are normal. She will be allowed home. Lab Data 06/21/22 04:00 06/21/22 04:00 Labs/Radiology: Radiology Impressions Gallbladder Ultrasound 06/21/22 03:45 IMPRESSION: 1. Cholelithiasis with no strong sonographic evidence of cholecystitis. 2. Nondilated CBD. Possible slight intrahepatic biliary dilation appears improved from 3 days ago. 3. Liver is large and mildly steatotic. Laboratory Results WBC 12.7 10^3/uL (4.0-10.0) H 06/21/22 04:00 RBC 4.57 10^6/uL (4.1-5.3) 06/21/22 04:00 Hgb 12.2 g/dL (11.5-15.3) 06/21/22 04:00 Hct 38.8 % (37.0-47.0) 06/21/22 04:00 MCV 84.9 fl (81-99) 06/21/22 04:00 MCH 26.7 pg (28.0-34.0) L 06/21/22 04:00 MCHC 31.4 g/dL (30.0-36.0) 06/21/22 04:00 RDW 14.8 % (12.1-15.1) 06/21/22 04:00 Plt Count 296 10^3/cmm (130-400) 06/21/22 04:00 MPV 9.7 fL (7.4-10.4) 06/21/22 04:00 Neut % (Auto) 70.5 % 06/21/22 04:00 Lymph % (Auto) 23.9 % 06/21/22 04:00 [place] % (Auto) 3.6 % 06/21/22 04:00 Eos % (Auto) 1.5 % 06/21/22 04:00 Baso % (Auto) 0.2 % 06/21/22 04:00 Neut # (Auto) 8.91 10^3/uL (1.8-7.7) H 06/21/22 04:00 Lymph # (Auto) 3.0 10^3/uL (0.8-4.8) 06/21/22 04:00 [place] # (Auto) 0.5 10^3/uL (0.2-0.9) 06/21/22 04:00 Eos # (Auto) 0.2 10^3/uL (0.0-0.8) 06/21/22 04:00 Baso # (Auto) 0.0 10^3/uL (0.0-0.1) 06/21/22 04:00 Nucleated RBC % (auto) 0 % 06/21/22 04:00 Nucleated RBCs # 0.0 /100WBC 06/21/22 04:00 Sodium 137 mmol/L (136-145) 06/21/22 04:00 Potassium 3.7 mmol/L (3.5-5.1) 06/21/22 04:00 Chloride 101 mmol/L (98-107) 06/21/22 04:00 Carbon Dioxide 25 mmol/L (22-29) 06/21/22 04:00 Anion Gap 14.7 (5-19) 06/21/22 04:00 BUN 13 mg/dL (6-20) 06/21/22 04:00 Creatinine 0.5 mg/dL (0.5-0.9) 06/21/22 04:00 GFR Calculation 143.9 mL/min (90-130) H 06/21/22 04:00 Glucose 95 mg/dL (65-115) 06/21/22 04:00 Calculated Osmolality 284 mOsm/kg (285-295) L 06/21/22 04:00 Calcium 9.0 mg/dL (8.5-10.5) 06/21/22 04:00 Total Bilirubin 0.2 mg/dL (0.15-1.2) 06/21/22 04:00 AST 56 U/L (0-32) H 06/21/22 04:00 ALT 55 U/L (0-33) H 06/21/22 04:00 Alkaline Phosphatase 76 U/L (35-105) 06/21/22 04:00 C-Reactive Protein 3.0 mg/L (0.0-4.9) 06/21/22 04:00 Total Protein 6.4 g/dL (6.6-8.7) L 06/21/22 04:00 Albumin 3.7 g/dL (3.5-5.2) 06/21/22 04:00 Globulin 2.7 g/dL (1.3-4.6) 06/21/22 04:00 Lipase 35 U/L (13-60) 06/21/22 04:00 Ser , Semi-Qnt 08906.00 mIU/mL 06/21/22 04:00 Urine Color Yellow (Yellow) 06/21/22 04:15 Urine Appearance Clear (CLEAR) 06/21/22 04:15 Urine pH 5 (5-7) 06/21/22 04:15 Ur Specific [place] 1.010 (1.005-1.030) 06/21/22 04:15 Urine Protein 1+ (Negative) H 06/21/22 04:15 Urine Glucose (UA) Norm (Normal) 06/21/22 04:15 Urine Ketones Negative (Negative) 06/21/22 04:15 Urine Blood Neg (Negative) 06/21/22 04:15 Urine Nitrate Negative (Negative) 06/21/22 04:15 Urine Bilirubin Neg (Negative) 06/21/22 04:15 Urine Urobilinogen Neg mg/dL (Negative) 06/21/22 04:15 Ur Leukocyte Esterase Negative (Negative) 06/21/22 04:15 Urine RBC 0-4 /hpf (0-2) H 06/21/22 04:15 Urine WBC 0-4 /hpf (0-5) H 06/21/22 04:15 Ur Squamous Epith Cells 0-4 /hpf (0-5) H 06/21/22 04:15 Amorphous Sediment Not Reportable 06/21/22 04:15 Urine Bacteria Trace /hpf (NONE) 06/21/22 04:15 Hyaline Casts 0-4 /lpf H 06/21/22 04:15 Urine Mucus Trace /hpf 06/21/22 04:15 Discharge Plan Discharge Patient Disposition: Home Clinical Impression: Biliary colic Condition: Stable Prescriptions: New ondansetron 4 mg film 4 mg PO DAILY PRN (Reason: nausea and vomiting) Qty: 10 0RF No Action sulfamethoxazole-trimethoprim [Bactrim DS] 800-160 mg tablet 1 tab PO BID 10 Days Qty: 20 0RF mupirocin 2 % ointment 1 applic topical BID 21 Days Qty: 15 0RF Rx Instructions: Apply to each nostril and topically BID escitalopram oxalate 20 mg tablet 20 mg PO DAILY Discharge Orders: Discharge ED (Routine); Ordered 06/21/22 Ordered By: Pavel Gamboa Referrals: Fred Gilmore MD [Primary Care Provider] - 1-3 days Patient Instructions: Biliary Colic (ED) Activity Restrictions/Additional Instructions: Return for vomiting liquids or medications, worsening pain, fever, yellowing of the skin or eyes, other concerning symptoms. He may use the nausea medication prescribed as needed. Stand Alone Forms: Work/School Release Coding Level of Care Code ED Group Director for Leonard Cooper
[2022-06-21 04:30] LABS: Add Urine Microscopic? YES; Bilirubin Urine Neg (Negative); Blood Urine Neg (Negative); Glucose Urine UA Norm (Normal); Ketones Urine Negative (Negative); Leukocyte Esterase Urine Negative (Negative); Nitrate Urine Negative (Negative); Protein Urine 1+ (Negative); Urine Appearance Clear (CLEAR); Urine Color Yellow (Yellow); Urobilinogen Urine Neg (Negative); pH Urine 5 (5-7)
[2022-06-21 04:38] LABS: Add Urine Culture? No; Bacteria Urine TRACE /hpf; Hyaline Casts Urine 0-4 /lpf; Mucus Urine TRACE /hpf; RBC Urine 0-4 /hpf (0-2); Squamous Epithelial Cell Urine 0-4 /hpf (0-5); WBC Urine 0-4 /hpf (0-5)
[2022-06-21 04:54] LABS: Alanine Aminotransferase 55 U/L (0-33); Albumin Level 3.7 g/dL (3.5-5.2); Alkaline Phosphatase 76 U/L (35-105); Anion Gap 14.7 (5-19); Aspartate Amino Transferase 56 U/L (0-32); Blood Urea Nitrogen 13 mg/dL (6-20); Carbon Dioxide 25 mmol/L (22-29); Chloride 101 mmol/L (98-107); Creatinine Clr Calc Pharmacy 152.0747; Globulin 2.7 g/dL (1.3-4.6); Glomerular Filtration Rate 143.9 mL/min (90-130); Glucose 95 mg/dL (65-115); Lipase 35 U/L (13-60); Osmolality Calculated 284 mOsm/kg (285-295); Potassium 3.7 mmol/L (3.5-5.1); Sodium 137 mmol/L (136-145); Total Bilirubin 0.2 mg/dL (0.15-1.2); Total Protein 6.4 g/dL (6.6-8.7)
[2022-06-21 05:30] VITALS: BP 96/57; PULSE 74; RESP 16; O2SAT 100
== END 2022-06-21 05:31 | disposition home or self-care (01) ==
PROVIDERS: Emergency Provider Emergency Medicine; PCP Family Medicine
DX: K80.20 Calculus of gallbladder without cholecystitis without obstruction (principal)
CPT/HCPCS: 76705; 80053; 81001; 83690; 84702; 85025; 86140; 96374; 96375; 99285; J2270; J2405

== ENCOUNTER 2023-01-11 00:30 | Inpatient (IN) | payer BC, MEDICAID, SELFPAY ==
[2023-01-11] VITALS (104 sets, daily range): BP systolic 111–163; BP diastolic 60–99; PULSE 61–107; RESP 16–18; TEMP 36.4; O2SAT 84–100; BMI 30.9
[2023-01-11] MEDS: lactated ringers 1,000 ML 125 ML IV (00:16)
--- NOTE | 2023-01-11 01:30 | XRR_ITS ---
PROCEDURE INFORMATION: Exam: XR Abdomen Exam date and time: 01/11/2023 1:33 AM Age: 32 years old Clinical indication: Screening exam; Post surgical status; Emergency csection/ evaluate for foreign body; Prior surgery; Surgery date: Post-operative (0-2 days); Surgery type: C section; Additional info: Stat c section, no counts taken TECHNIQUE: Imaging protocol: Radiologic exam of the abdomen. Views: Frontal supine view of the abdomen. 1 View. COMPARISON: US gall bladder [id number] 06/21/2022 3:57 AM FINDINGS: Gastrointestinal tract: No small bowel dilation or free air identified. Bones/joints: Unremarkable. Soft tissues: Transverse skin nuria overlie pelvis. No suspicious foreign body noted. XR/XR KUB portable [id number] IMPRESSION: No acute findings.
[2023-01-11 01:39] LABS: Basophils # 0.1 10^3/uL (0.0-0.1); Basophils % 0.3 %; Eosinophils # 0.1 10^3/uL (0.0-0.8); Eosinophils % 0.4 %; Hematocrit 32.5 % (36-47); Lymphocytes # 6.3 10^3/uL (0.8-4.8); Lymphocytes % 37.9 %; Mean Corpuscular HGB Conc 31.7 g/dL (30-55); Mean Corpuscular Hemoglobin 27.9 pg (27-33); Mean Corpuscular Volume 88.1 fl (85-98); Mean Platelet Volume 10.1 fL (7.4-10.4); Monocytes # 0.9 10^3/uL (0.2-0.9); Monocytes % 5.1 %; Neutrophils # 9.29 10^3/uL (1.8-7.7); Neutrophils % 55.5 %; Nucleated Red Blood Cells % 0 %; Platelet Count 280 10^3/cmm (157-399); Red Blood Count 3.69 10^6/uL (3.85-5.65); White Blood Count 16.74 10^3/uL (3.29-11.43)
--- NOTE | 2023-01-11 01:50 | P.HP_ITS ---
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 Per the patient, she was laying down when she felt a gush from her vagina and noticed she had blood and then that was followed up by clot. She contacted the ambulance to brought her to the OB department. During that time she continued to have bleeding vaginally. She had back pain as well. She is also having contractions and having vaginal pressure. Upon arrival at the OB department she was noted to have more bleeding as well. She is also to have heart tones that were in the 70s to 90s range with moderate variability. The patient had been on enoxaparin during her due to history of DVTs, but per the patient she has not been taking it for the last month. Review of Systems General: Reports: 10 or more systems reviewed and unremarkable except in HPI and below Const: Reports: fatigue; Denies: fever(s) Eyes: Denies: change in vision Card: Denies: chest pain Musc: Reports: back pain You/Lymph: Reports: other (History of DVT) Medications/Allergies Home Medications Medication Instructions Recorded Confirmed Last Taken Type escitalopram oxalate 20 mg tablet 20 mg PO DAILY 02/15/22 07/15/22 02/15/22 His tory mupirocin 2 % topical ointment 1 applic topical BID 3 weeks #15 06/08/22 07/15/22 Unknown Rx grams ondansetron 4 mg oral soluble film 4 mg PO DAILY PRN nausea and 06/21/22 07/15/22 Unknown Rx vomiting #10 ea fluconazole 150 mg tablet 150 mg PO Q3D 2 doses #2 tabs 07/15/22 07/15/22 Unknown Rx enoxaparin 40 mg/0.4 mL mg 01/11/23 Unknown History subcutaneous syringe Allergies Allergy/AdvReac Type Severity Reaction Status Date / Time No Known Allergies Allergy Verified 07/15/22 09:32 PFSH FOOD ASSEMBLER PFSH: Medical History (Updated 01/11/23 @ 01:58 by Fred Gilmore MD) Anxiety Cervical cancer screening Depression DVT (deep venous thrombosis) History of melanoma 2018 Surgical History History of 2019 Family History Mother Cancer kidney cancer, skin cancer Father Cancer esophageal cancer Grandfather Cancer colon cancer, maternal Family/Other Cancer maternal uncle, lung cancer spread to bone Denies family history of Diabetes Hyperlipidemia Chronic kidney disease (CKD) Anesthesia complication Bleeding disorder Hypertension Stroke Social History Substance/Drug Use: never Other Female Reproductive History: Hx Age of Menarche: 14 History History History 1 Term 0 1 Miscarriages/Ectopic 0 Living Children 1 Vitals/I&O/Wt Last Vital Signs Pulse 96 01/11/23 00:30 BP 139/86 01/11/23 00:21 Pulse Ox 100 01/11/23 00:30 Physical Exam Const: COMMON NORMALS: patient oriented x3 and alert HENMT: COMMON NORMALS: moist oral mucous membranes HEAD & SCALP: normal to inspection Chest: COMMONS NORMALS: normal inspection of the chest Resp: COMMON NORMALS: clear to auscultation bilaterally AUSCULTATION: clear to auscultation bilaterally Cardio: COMMON NORMALS: regular rate and regular rhythm RATE: regular rate RHYTHM: regular rhythm GI: INSPECTION: Yes normal to inspection and Yes other (Gravid) Extremity: COMMON NORMALS: normal to inspection GENERAL: Yes edema (Trace) Neuro: COMMON NORMALS: patient oriented x3, moves all extremities and no sensory deficits noted SENSORIUM/ORIENTATION: Yes alert Psych: COMMON NORMALS: mental status grossly normal and cooperative (Anxious) Skin: COMMON NORMALS: negative for no wounds (Multiple scab noted for the patient has picked wounds on herself.) GENERAL SKIN EXAM: no rashes or lesions noted Data 01/11/23 01:30 A&P Assessment and plan (1) 38 weeks gestation of : Given the fact the patient has sudden onset vaginal bleeding with bradycardia, we are going to perform a stat . I briefly discussed the risks with the patient including risk of bleeding and infection. The patient has been prescribed and is supposed to be on enoxaparin, but apparently has not been taking it for the last month. (2) Vaginal bleeding in : (3) Non-reassuring heart tones complicating , antepartum: Attestations Medical Necessity Statement*: The patient will have a stat and hopefully have routine post care. Coding Level of Care Code Acute Code for Chg Fwd Diagnoses 38 weeks gestation of Z3A.38 Vaginal bleeding in O46.90 Non-reassuring heart tones complicating , antepartum O36.8390
--- NOTE | 2023-01-11 02:02 | PM.OP ---
Operative Report Date of procedure: January 11, 2023 Pre-op diagnosis: 1. 32-year-old 3 para 2-0-0-2 at 38 weeks estimated gestational age 2. Sudden onset vaginal bleeding 3. bradycardia Post-op diagnosis: Same Procedure done: Stat low-transverse section Specimens removed/disposition: 1. Male with a weight of 5 pounds 12 ounces and Apgars of 8 and 9 2. Placenta with a three-vessel cord delivered intact Surgeon: Fred Gilmore MD Estimated blood loss (mL): 800 Complications: None Procedure: The patient was brought back to the operating room where she was prepped and draped in usual sterile fashion. Unfortunately, the patient's IV was found to be blown, so we had to start another IV. Patient was then placed under general anesthesia A lower transverse skin incision was then made with a #10 blade. I then dissected down to the underlying subcutaneous tissue until arriving at the prerectal fascia. The fascia was then nicked with the scalpel bilaterally. The fascial incisions were then carried laterally with Almanzar scissors. Attention was then turned to the superior aspect of the incision which was grasped with kochers and tented up away from the underlying rectus abdominis muscles. The muscles were then dissected away from the fascia manually, and later with Almanzar scissors. Attention was then turned to the inferior aspect of the incision, and the fascia was dissected away from the underlying muscle in similar fashion. The rectus abdominis muscles were then spread manually. The peritoneum was entered manually. Excellent visualization of the uterus was noted. A lower transverse uterine incision was then made with a #10 blade. Upon arriving at the intrauterine cavity, the uterine incision was then extended manually. The infant was noted to be in vertex position. The baby was delivered without difficulty There was no meconium. There was no nuchal cord. The cord was cut and clamped. The baby was then handed to Dr. Restrepo in the waiting nurse.. The placenta was removed intact. The uterus was externalized. The intrauterine cavity was cleansed of any remaining debris. The uterine incision was reapproximated in 2 layers. The first layer was performed with 0 Vicryl in a running locked stitch. The second layer was an imbricating stitch also using 0 Vicryl. The uterus was replaced into the abdomen. The peritoneum was then irrigated with warm saline. I reexamined the uterine incision and found it to be hemostatic. The uterus was noted to be quite boggy, and Pitocin and TXA were both given. The uterus became much more firm after treatment. The rectus abdominis muscles were then reapproximated using 0 Vicryl in a running stitch. The fascia was then reapproximated using 0 Vicryl in running stitch. The subcutaneous tissue was then reapproximated using 0 Vicryl in a running stitch. The skin was reapproximated using nuria. A sterile dressing was placed. All counts were correct x2. Both the mother and baby were in stable condition.
--- NOTE | 2023-01-11 02:59 | PC.NURSE ---
Patient presented to L&D via EMS with c/o vaginal bleeding with back pain. Pt reported a large amount of bleeding at home and having passed a clot. Pt had dried blood which had run down both legs and into her shoes, as well as blood on her shorts. Patient was assissted into a gown and belly band and placed on monitors. FHTs were found to be in the 90s, and continued despite position changes. Dr Gilmore was notified of pt's presentation with bleeding and low FHTs despite intervention, hx of prior . Dr's presence requested. Dr Gilmore stated he was on his way, he requested anesthesia and peds be called for delivery. IV was in place on arrival, labs sent down but lab called to say they had clotted. IV bolus was started, O2 placed via non-rebreather. consent signed. Dr Gilmore and anesthesia arrived, Dr Gilmore assisted nurses in pushing pt to OR [facility]. Once in OR, IV went bad. New IV started by anesthesia. Labs redrawn in OR. galicia placed, prep done, FHTs [address] Restrepo present for delivery, assissted anesthesia with putting pt to sleep cut time 0048 uterine 0050 baby 0050 Apgars 8,9
[2023-01-11] MEDS: ketorolac 30 mg/mL INJ IVP (03:09)
[2023-01-11] MEDS: ceFAZolin 2,000 MG in sodium chloride 0.9% (plus) 50 ML 100 MG IV (03:10)
--- NOTE | 2023-01-11 03:33 | PC.NURSE ---
Pt arrived via EMS with 20g IV in left hand. IV line infiltrated in the OR, anesthesia removed catheter. Catheter tip appeared to be intact. Pt tolerated well.
[2023-01-11] MEDS: lanolin oint 7 gm 1 APPLIC TOPICAL (05:01)
[2023-01-11] MEDS: HYDROcodone-acetaminophen 5-325 mg Tablet PO ×4 (06:32→20:10)
[2023-01-11] MEDS: dextrose 5%-lactated ringers 1,000 ML 125 ML IV (06:34)
--- NOTE | 2023-01-11 06:37 | PC.NURSE ---
THIS RN IN ROOM AT 0630 TO PERFORM FUNDAL MESSAGE, PT STATED SHE DID NOT WANT TO BE RUBBED UNTIL SHE GOT PAIN MEDICATION. THIS RN EDUCATED ON THE PURPOSE OF FUNDAL MESSAGE AND THE RISKS INVOLVED IN NOT DOING IT. THIS RN LEFT TO GO GET HYDROCODONE 5/325 PER PATIENT REQUEST AND ADMINISTERED 2 TABLETS. THIS RN EDUCATED PT THAT A RN WOULD BE BACK AT 0730 TO PERFORM A FUNDAL MESSAGE. PT STATED THANK YOU SO MUCH .
[2023-01-11] MEDS: ferrous sulfate EC 325 mg Tablet PO ×2 (10:56→20:11)
[2023-01-11] MEDS: docusate sodium 100 mg Capsule PO ×2 (10:56→20:11)
[2023-01-11] MEDS: prenatal vitamin Capsule 1 CAP PO (10:56)
[2023-01-11 13:24] LABS: Hematocrit 31.3 % (36-47); Mean Corpuscular HGB Conc 32.3 g/dL (30-55); Mean Corpuscular Hemoglobin 27.4 pg (27-33); Mean Corpuscular Volume 85.1 fl (85-98); Mean Platelet Volume 10.1 fL (7.4-10.4); Platelet Count 257 10^3/cmm (157-399); Red Blood Count 3.68 10^6/uL (3.85-5.65); Red Cell Distribution Width 13.1 % (12.1-15.1)
[2023-01-12] MEDS: alum-mag-hydroxide-sime 30 mL UDC PO (00:04)
[2023-01-12] MEDS: HYDROcodone-acetaminophen 5-325 mg Tablet PO ×5 (00:18→15:31)
[2023-01-12 02:23] VITALS: RESP 16
[2023-01-12 04:12] VITALS: BP 121/75; PULSE 82; RESP 15; TEMP 36.8; O2SAT 95
[2023-01-12] MEDS: simethicone 80 mg Chew PO ×2 (04:17→15:32)
--- NOTE | 2023-01-12 06:45 | P.DS_ITS ---
Discharge Providers DIMENSION SPECIFICATION INSPECTOR Date of Admission: 01/11/23 00:30 Date of Discharge: 01/12/23 Attending Provider at Admission: Fred Gilmore MD Attending Provider at Discharge: Fred Gilmore MD Primary Care Provider: Fred Gilmore MD Diagnoses at Discharge Discharge Diagnosis (1) 38 weeks gestation of : Status: Acute (2) Vaginal bleeding in : Status: Acute (3) Non-reassuring heart tones complicating , antepartum: Status: Acute Reason for Visit Reason for Visit: vag bleeding, back pain Hospital Course Hospital Course The patient presented to the hospital via EMS with sudden vaginal bleeding. heart tones were noted to be in the 80s and 90s. As result a stat C- section was performed. Thankfully, the baby did very well. The was unremarkable. Her course has largely also been unremarkable. She has passed gas. Her bleeding has been appropriate. She has ambulated and tolerated a regular diet. She has had a couple of episodes of severe pain in her right lower rib/upper abdomen area. These episodes have lasted for several minutes and resolve spontaneously. We did attempt to give her simethicone and pain medication help, but the pain resolved prior to the benefits from the pain medication. Information Peripartum Data: Infant Delivery Method: Physical Exam Narrative: She is in no acute distress Lungs are clear auscultation bilaterally Her heart has a regular rate and rhythm Her fundus is below the umbilicus and firm Her dressing is clean, dry and intact Her extremities have trace edema Urinary Catheter Management: Lara: Cath Placed During This Visit: yes, but has since been removed by the nurse Reason for Continuing Indwelling Catheter: Decision to DC Catheter Urinary Catheter Date of Insertion: 01/11/23 Urinary Catheter Time of Insertion: 00:30 Date Urinary Catheter Removed: 01/11/23 Time Urinary Catheter Discontinued: 16:05 History History History 1 Term 0 1 Miscarriages/Ectopic 0 Living Children 1 Discharge Data Studies Completed and Pending Completed Studies During Hospitalization Category Date Time Status XR KUB portable [id number] Stat Exams 01/11/23 01:30 Completed Radiology Impressions KUB X-Ray 01/11/23 01:30 IMPRESSION: No acute findings. Laboratory Results WBC 12.80 10^3/uL (3.29-11.43) H 01/11/23 12:55 Corrected WBC Cancelled 01/10/23 23:45 RBC 3.68 10^6/uL (3.85-5.65) L 01/11/23 12:55 Hgb 10.10 g/dL (11.27-16.99) L 01/11/23 12:55 Hct 31.3 % (36-47) L 01/11/23 12:55 MCV 85.1 fl (85-98) 01/11/23 12:55 MCH 27.4 pg (27-33) 01/11/23 12:55 MCHC 32.3 g/dL (30-55) 01/11/23 12:55 RDW 13.1 % (12.1-15.1) 01/11/23 12:55 Plt Count 257 10^3/cmm (157-399) 01/11/23 12:55 MPV 10.1 fL (7.4-10.4) 01/11/23 12:55 Gran % Cancelled 01/10/23 23:45 Neut % (Auto) 55.5 % 01/11/23 01:30 Lymph % (Auto) 37.9 % 01/11/23 01:30 [place] % (Auto) 5.1 % 01/11/23 01:30 Eos % (Auto) 0.4 % 01/11/23 01:30 Baso % (Auto) 0.3 % 01/11/23 01:30 Neut # (Auto) 9.29 10^3/uL (1.8-7.7) H 01/11/23 01:30 Lymph # (Auto) 6.3 10^3/uL (0.8-4.8) H 01/11/23 01:30 [place] # (Auto) 0.9 10^3/uL (0.2-0.9) 01/11/23 01:30 Eos # (Auto) 0.1 10^3/uL (0.0-0.8) 01/11/23 01:30 Baso # (Auto) 0.1 10^3/uL (0.0-0.1) 01/11/23 01:30 Absolute Gran (auto) Cancelled 01/10/23 23:45 Nucleated RBC % (auto) 0 % 01/11/23 01:30 Nucleated RBCs # 0.0 /100WBC 01/11/23 01:30 Vitals Last Vital Signs Temp 98.2 F 01/12/23 04:12 Pulse 82 01/12/23 04:12 Resp 15 01/12/23 04:12 BP 121/75 01/12/23 04:12 Pulse Ox 95 01/12/23 04:12 O2 Del Method Room Air 01/12/23 04:12 O2 Flow Rate 10 01/11/23 00:16 Discharge Plan Discharge Patient Disposition: Home Condition: Stable Prescriptions: New hydrocodone-acetaminophen 5-325 mg Tablet 1 tab PO Q4H PRN (Reason: Moderate To Severe Pain) Qty: 30 0RF multivit no.11-amwi-kidww acid 106.5-1 mg capsule 1 cap PO DAILY Qty: 90 0RF Continued escitalopram oxalate 20 mg tablet 20 mg PO DAILY enoxaparin 40 mg/0.4 mL syringe Discontinued mupirocin 2 % ointment 1 applic topical BID 21 Days Qty: 15 0RF Rx Instructions: Apply to each nostril and topically BID fluconazole 150 mg tablet 150 mg PO Q3D Qty: 2 0RF Rx Instructions: may repeat second dose 72 hrs after first dose if symptoms persist ondansetron 4 mg film 4 mg PO DAILY PRN (Reason: nausea and vomiting) Qty: 10 0RF Discharge Orders: Discharge Order (Routine); Ordered 01/12/23 Ordered By: Fred Gilmore Referrals: Fred Gilmore MD [Primary Care Provider] - 4-7 days (Corresponded with baby's appointment) Discharge Diet: Usual diet Discharge Activity: Limit activity as instructed Patient Instructions: Hydrocodone/Acetaminophen (By mouth), Depression (DC), Expression, Collection and Storage of Breast Milk (DC), and Nipple Soreness (DC), Effects of Smoking, Alcohol, and Medicines on (DC), Preeclampsia and Eclampsia After Delivery (GEN), (DC), Breast Care for the Mother (DC), OB Food/Drug Interaction Guide, OB Care at Home, Opioid Safety, Abnormal Bleeding Discharge Attestations DIMENSION SPECIFICATION INSPECTOR Time Spent in Discharge Care*: less than 30 min Coding Level of Care Code Acute Code for Chg Fwd Diagnoses 38 weeks gestation of Z3A.38 Vaginal bleeding in O46.90 Non-reassuring heart tones complicating , antepartum O36.1879
[2023-01-12] MEDS: docusate sodium 100 mg Capsule PO (08:31)
[2023-01-12] MEDS: prenatal vitamin Capsule 1 CAP PO (08:31)
[2023-01-12] MEDS: ferrous sulfate EC 325 mg Tablet PO (08:31)
[2023-01-12 11:19] VITALS: BP 125/81; PULSE 100
[2023-01-12 16:34] VITALS: BP 137/86; PULSE 88
[2023-01-12 16:50] VITALS: BP 137/86; PULSE 88
== END 2023-01-12 17:00 | disposition home or self-care (01) | DRG 788 ==
LOC: OPOB 00:31 → OBGYN 00:31
PROVIDERS: Admitting Provider Family Medicine; PCP Family Medicine; Visit Provider Family Medicine
PROC: 10D00Z1 Extraction of Products of Conception, Low, Open Approach (ICD-10-PCS; CPT 59514; principal; 2023-01-11 00:45)
DX: O76 Abnormality in fetal heart rate and rhythm complicating labor and delivery (principal); Z3A.38 38 weeks gestation of pregnancy; Z37.0 Single live birth; O46.93 Antepartum hemorrhage, unspecified, third trimester; Z86.718 Personal history of other venous thrombosis and embolism; Z79.01 Long term (current) use of anticoagulants; Z91.148 Patient's other noncompliance with medication regimen for other reason
CPT/HCPCS: 36415; 51702; 59025; 59409; 74018; 74410; 85025; 85027; 98960; 99211; J0330; J0690; J1170; J1885; J2704; J3010; J7120; J7121

== ENCOUNTER 2023-07-17 13:53 | Emergency (ER) | payer BC, MEDICAID, SELFPAY ==
[2023-07-17 13:57] VITALS: BP 110/75; PULSE 99; RESP 18; TEMP 36.6; O2SAT 94; BMI 28.3
--- NOTE | 2023-07-17 14:23 | ED_ITS ---
HPI - Abdominal Pain 2 General: Chief Complaint: Abdominal Pain Stated Complaint: abd pain Time Seen by Provider: 07/17/23 14:12 History of Present Illness: 33-year-old female comes in today for co mplaints of right upper quadrant abdominal pain and nausea. Patient reports a dull constant pain for the last 2 days. Patient does have a history of gallstones. Patient denies any fever or chills. Patient appears nontoxic. Patient appears in mild to moderate pain. Associated Symptoms: Reports nausea Review of Systems 2 General: Reports: 10 or more systems reviewed and unremarkable except in HPI and below GI: Reports: abdominal pain and nausea [facility] ED 2 PFSH: Medical History (Updated 07/17/23 @ 15:39 by SULMA Canales) DVT (deep venous thrombosis) Anxiety Depression History of melanoma 2018 Cervical cancer screening Surgical History History of 2019 Family History Mother Cancer kidney cancer, skin cancer Father Cancer esophageal cancer Grandfather Cancer colon cancer, maternal Family/Other Cancer maternal uncle, lung cancer spread to bone Denies family history of Diabetes Hyperlipidemia Chronic kidney disease (CKD) Anesthesia complication Bleeding disorder Hypertension Stroke Social History Substance/Drug Use: never Physical Exam 2 Const: COMMON NORMALS: alert HENMT: COMMON NORMALS: normocephalic HEAD & SCALP: normocephalic Neck/C-Spine: COMMON NORMALS: full ROM Resp: COMMON NORMALS: normal respiratory effort Cardio: COMMON NORMALS: regular rate RATE: regular rate GI: AUSCULTATION: Yes normoactive bowel sounds PALPATION: Yes Tenderness to palpation present (GI) Details: RUQ Extremity: COMMON NORMALS: normal to inspection Neuro: SENSORIUM/ORIENTATION: Yes alert Skin: COMMON NORMALS: turgor normal GENERAL SKIN EXAM: turgor normal Course 2 Vital Signs: Vital signs: Vital Signs Temperature 98 F 07/17/23 13:57 Pulse Rate 99 07/17/23 13:57 Respiratory Rate 18 07/17/23 14:42 Blood Pressure 110/75 07/17/23 13:57 Pulse Oximetry 98 07/17/23 14:42 Oxygen Delivery Me thod Room Air 07/17/23 13:57 MDM - Abdominal Pain Medical Decision Making 33-year-old female comes in today for complaints of right upper quadrant abdominal pain. Patient has some known gallstones. Patient was recommended to have her gallstones be further evaluated for possible removal of her gallbladder but never did follow-up. Patient appears nontoxic. Respirations are even lungs are clear to auscultation. Vital signs are normal. Differential diagnosis includes but not limited to gallbladder colic, cholelithiasis, cholecystitis, pancreatitis, gastritis, urinary tract infection, renal colic. CBC CMP and urinalysis were unremarkable. Ultrasound the gallbladder there was no signs of cholecystitis and a few gallstones in the gallbladder without signs of obstruction. Believe the patient probably has a gallbladder colic secondary to her gallstones. Recommend follow-up with surgery for further evaluation. Patient was stable and discharged home. Patient reported understanding of care plan and need for follow-up or return to the ER. Lab Data 07/17/23 14:25 07/17/23 14:25 Labs/Radiology: Laboratory Results WBC 9.54 10^3/uL (3.29-11.43) 07/17/23 14:25 RBC 4.48 10^6/uL (3.85-5.65) 07/17/23 14:25 Hgb 13.20 g/dL (11.27-16.99) 07/17/23 14:25 Hct 39.1 % (36-47) 07/17/23 14:25 MCV 87.3 fl (85-98) 07/17/23 14:25 MCH 29.5 pg (27-33) 07/17/23 14:25 MCHC 33.8 g/dL (30-55) 07/17/23 14:25 RDW 13.3 % (12.1-15.1) 07/17/23 14:25 Plt Count 293 10^3/cmm (157-399) 07/17/23 14:25 MPV 9.7 fL (7.4-10.4) 07/17/23 14:25 Neut % (Auto) 74.7 % 07/17/23 14:25 Lymph % (Auto) 19.5 % 07/17/23 14:25 [place] % (Auto) 4.6 % 07/17/23 14:25 Eos % (Auto) 0.9 % 07/17/23 14:25 Baso % (Auto) 0.1 % 07/17/23 14:25 Neut # (Auto) 7.12 10^3/uL (1.8-7.7) 07/17/23 14:25 Lymph # (Auto) 1.9 10^3/uL (0.8-4.8) 07/17/23 14:25 [place] # (Auto) 0.4 10^3/uL (0.2-0.9) 07/17/23 14:25 Eos # (Auto) 0.1 10^3/uL (0.0-0.8) 07/17/23 14:25 Baso # (Auto) 0.0 10^3/uL (0.0-0.1) 07/17/23 14:25 Nucleated RBC % (auto) 0 % 07/17/23 14: Nucleated RBCs # 0.0 /100WBC 07/17/23 14:25 Sodium 138 mmol/L (136-145) 07/17/23 14:25 Potassium 3.5 mmol/L (3.5-5.1) 07/17/23 14:25 Chloride 103 mmol/L (98-107) 07/17/23 14:25 Carbon Dioxide 23 mmol/L (22-29) 07/17/23 14:25 Anion Gap 15.5 (5-19) 07/17/23 14:25 BUN 7 mg/dL (6-20) 07/17/23 14:25 Creatinine 0.6 mg/dL (0.5-0.9) 07/17/23 14:25 GFR Calculation 115.9 mL/min (90-130) 07/17/23 14:25 Glucose 90 mg/dL (65-115) 07/17/23 14:25 Calculated Osmolality 284 mOsm/kg (285-295) L 07/17/23 14:25 Calcium 8.7 mg/dL (8.5-10.5) 07/17/23 14:25 Total Bilirubin 0.2 mg/dL (0.15-1.2) 07/17/23 14:25 AST 17 U/L (0-32) 07/17/23 14:25 ALT 22 U/L (0-33) 07/17/23 14:25 Alkaline Phosphatase 70 U/L (35-105) 07/17/23 14:25 Total Protein 7.1 g/dL (6.6-8.7) 07/17/23 14:25 Albumin 4.3 g/dL (3.5-5.2) 07/17/23 14:25 Globulin 2.8 g/dL (1.3-4.6) 07/17/23 14:25 Lipase 13 U/L (13-60) 07/17/23 14:25 HCG, Qual Negative (Negative) 07/17/23 14:25 Urine Color Yellow (Yellow) 07/17/23 15:00 Urine Appearance Cloudy (CLEAR) A 07/17/23 15:00 Urine pH 5 (5-7) 07/17/23 15:00 Ur Specific [place] 1.020 (1.005-1.030) 07/17/23 15:00 Urine Protein 1+ (Negative) H 07/17/23 15:00 Urine Glucose (UA) Norm (Normal) 07/17/23 15:00 Urine Ketones 1+ (Negative) H 07/17/23 15:00 Urine Blood Neg (Negative) 07/17/23 15:00 Urine Nitrate Negative (Negative) 07/17/23 15:00 Urine Bilirubin 1+ (Negative) H 07/17/23 15:00 Urine Urobilinogen 4 mg/dL (Negative) H 07/17/23 15:00 Ur Leukocyte Esterase Trace (Negative) H 07/17/23 15:00 Urine RBC None /hpf (0-2) 07/17/23 15:00 Urine WBC 5-10 /hpf (0-5) H 07/17/23 15:00 Ur Squamous Epith Cells 10-15 /hpf (0-5) H 07/17/23 15:00 Amorphous Sediment Not Reportable 07/17/23 15:00 Urine Bacteria 1+ /hpf (NONE) H 07/17/23 15:00 Urine Mucus 3+ /hpf 07/17/23 15:00 XR interpretation done by ED provider, pending radiology final review Discharge Plan Discharge Patient Disposition: Home Clinical Impression: Cholelithiases Qualifiers: Cholelithiasis location: gallbladder Cholecystitis presence: without cholecystitis Biliary obstruction: without biliary obstruction Qualified Code(s): K80.20 - Calculus of gallbladder without cholecystitis without obstruction Condition: Stable Prescriptions: New dicyclomine 20 mg tablet 20 mg PO QID PRN (Reason: abdominal pain) Qty: 20 0RF ondansetron 4 mg tablet,disintegrating 4 mg PO Q8H PRN (Reason: nausea and vomiting) Qty: 7 0RF No Action escitalopram oxalate 20 mg tablet 20 mg PO DAILY multivit no.64-pgid-rawvg acid 106.5-1 mg capsule 1 cap PO DAILY Qty: 90 0RF Discharge Orders: Discharge ED (Routine); Ordered 07/17/23 Ordered By: Aj Fuller Referrals: Fred Gilmore MD [Primary Care Provider] - Discharge Diet: Usual diet Discharge Activity: Increase activity as tolerated Patient Instructions: Gallstones (ED) Activity Restrictions/Additional Instructions: Light diet. Stay on a clear liquid diet until pain resolves. Follow-up with primary care for further instructions. Consult surgeon for consideration of gallbladder removal. Use medications as needed for pain. Return to ER for worsening symptoms such as inability to hold fluids down, uncontrolled pain, fever greater than 100.4, blood in vomit or stool. Coding Level of Care Code ED Large Sheetfed Press Operator for Leonard Cooper
--- NOTE | 2023-07-17 14:31 | USR_ITS ---
PROCEDURE INFORMATION: Exam: US Abdomen, Limited; Right Upper Quadrant Exam date and time: 07/17/2023 2:42 PM Age: 33 years old Clinical indication: Abdominal pain; Localized; Right upper quadrant (ruq); Additional info: Ruq pain, HX of gallstones TECHNIQUE: Imaging protocol: Real time ultrasound of the abdomen with image documentation. Limited exam focused on the right upper quadrant. COMPARISON: US gall bladder [id number] 06/21/2022 3:57 AM FINDINGS: Liver: Visualized hepatic parenchyma is unremarkable. The liver contour is grossly smooth. Gallbladder: There is cholelithiasis. No significant wall thickening or edema to suggest cholecystitis.The dielectric press operator reports a negative sonographic Keene's sign. Biliary ducts: The CBD is nondilated, measuring 3 mm. No sonographic evidence of intraductal stone. Pancreas: The pancreas is partially obscured bowel gas. Visualized portions are grossly unremarkable. Right kidney: The right kidney is normal in echotexture and measures 10.4 cm in length. No evidence of hydronephrosis. US/US gall bladder [id number] IMPRESSION: 1. Cholelithiasis without sonographic evidence of acute cholecystitis.
[2023-07-17 14:34] LABS: Basophils % 0.1 %; Eosinophils # 0.1 10^3/uL (0.0-0.8); Eosinophils % 0.9 %; Hematocrit 39.1 % (36-47); Lymphocytes # 1.9 10^3/uL (0.8-4.8); Lymphocytes % 19.5 %; Mean Corpuscular HGB Conc 33.8 g/dL (30-55); Mean Corpuscular Hemoglobin 29.5 pg (27-33); Mean Corpuscular Volume 87.3 fl (85-98); Mean Platelet Volume 9.7 fL (7.4-10.4); Monocytes # 0.4 10^3/uL (0.2-0.9); Monocytes % 4.6 %; Neutrophils # 7.12 10^3/uL (1.8-7.7); Neutrophils % 74.7 %; Nucleated Red Blood Cells % 0 %; Platelet Count 293 10^3/cmm (157-399); Red Blood Count 4.48 10^6/uL (3.85-5.65); Red Cell Distribution Width 13.3 % (12.1-15.1); White Blood Count 9.54 10^3/uL (3.29-11.43)
[2023-07-17] MEDS: sodium chloride 0.9% 500 ML 999 ML IV (14:41)
[2023-07-17 14:42] VITALS: RESP 18; O2SAT 98
[2023-07-17] MEDS: fentaNYL 50 mcg/mL INJ 2mL IVP (14:42)
[2023-07-17] MEDS: ondansetron 2 mg/ML SDV 2 mL 4 MG IVP (14:44)
[2023-07-17 14:46] LABS: HCG, Serum Qual Negative (Negative)
[2023-07-17 14:52] LABS: Alanine Aminotransferase 22 U/L (0-33); Albumin Level 4.3 g/dL (3.5-5.2); Alkaline Phosphatase 70 U/L (35-105); Anion Gap 15.5 (5-19); Aspartate Amino Transferase 17 U/L (0-32); Blood Urea Nitrogen 7 mg/dL (6-20); Calcium 8.7 mg/dL (8.5-10.5); Carbon Dioxide 23 mmol/L (22-29); Chloride 103 mmol/L (98-107); Creatinine Clr Calc Pharmacy 128.4988; Globulin 2.8 g/dL (1.3-4.6); Glomerular Filtration Rate 115.9 mL/min (90-130); Glucose 90 mg/dL (65-115); Lipase 13 U/L (13-60); Osmolality Calculated 284 mOsm/kg (285-295); Potassium 3.5 mmol/L (3.5-5.1); Sodium 138 mmol/L (136-145); Total Bilirubin 0.2 mg/dL (0.15-1.2); Total Protein 7.1 g/dL (6.6-8.7)
[2023-07-17] MEDS: ketorolac 30 mg/mL INJ 15 MG IVP (15:00)
[2023-07-17 15:25] LABS: Protein Urine 1+ (Negative); Urine Appearance Cloudy (CLEAR); Urine Color Yellow (Yellow); pH Urine 5 (5-7)
[2023-07-17 15:26] LABS: Add Urine Microscopic? YES; Bacteria Urine 1+ /hpf; Bilirubin Urine 1+ (Negative); Blood Urine Neg (Negative); Glucose Urine UA Norm (Normal); Ketones Urine 1+ (Negative); Leukocyte Esterase Urine Trace (Negative); Mucus Urine 3+ /hpf; Nitrate Urine Negative (Negative); Urobilinogen Urine 4 mg/dL (Negative)
[2023-07-17 15:27] LABS: Add Urine Culture? No
[2023-07-17 15:30] VITALS: BP 141/89; PULSE 76; O2SAT 98
[2023-07-17 16:09] VITALS: PULSE 68; O2SAT 94
--- NOTE | 2023-07-20 10:18 | PC.SOCIAL ---
General Surgery Referral to general surgery at this time. Clinic to contact patient with appt date/time.
== END 2023-07-17 16:10 | disposition home or self-care (01) ==
PROVIDERS: Emergency Provider Nurse Practitioner Family; PCP Family Medicine
DX: K80.20 Calculus of gallbladder without cholecystitis without obstruction (principal)
CPT/HCPCS: 76705; 80053; 81001; 83690; 84703; 85025; 96361; 96374; 96375; 99285; J1885; J2405; J3010; J7040

== ENCOUNTER 2023-10-03 08:49 | Day surgery (SDC) | payer BC, MEDICAID, SELFPAY ==
[2023-10-03] VITALS (14 sets, daily range): BP systolic 99–124; BP diastolic 63–77; PULSE 65–82; RESP 10–20; TEMP 36.2–36.4; O2SAT 95–99; BMI 28.3
[2023-10-03] MEDS: scopolamine 1.5 Patch 1 PATCH TRANSDERMA (09:28)
[2023-10-03] MEDS: sodium chloride 0.9% 1,000 ML 30 ML IV (09:31)
[2023-10-03 09:42] LABS: OR HCG Qualitative Urine Negative (Negative)
--- NOTE | 2023-10-03 10:07 | ANES.PREANE2 ---
Pre-Anesthetic Assessment Height/Weight: Height 1.6 m Weight 72.575 kg Temp Pulse Resp BP Pulse Ox O2 Del Method 97.1 F L 82 18 124/64 99 Room Air 10/03/23 09:22 10/03/23 09:22 10/03/23 09:22 10/03/23 09:22 10/03/23 09:22 10/03/23 09:22 Operation Date: 10/03/23 10:15 Proposed Procedures p Laparoscopic Cholecystectomy 35569, K80.20(Not Applicable) - Sean Stewart MD Familial anesthetic complications: None Was Beta Hugo taken within 24 hours: N/A Was Clonidine taken within 24 hours: N/A Last intake: Intake Last Liquid Date 10/02/23 Last Liquid Time 22:00 Last Solid Date 10/02/23 Last Solid Time 22:00 Social Tobacco and No alcohol Exam alert, oriented x 3, clear to auscultation bilaterally and regular rate & rhythm Airway Mallampati: Class II Dentition: other (2 missing) Neuropsych Anxiety and Depression Anesthetic Plan ASA status: 2 Anesthesia: General Risk of > 500 ml blood loss (7ml/kg in children): No Medications/Allergies Home Medications Medication Instructions Recorded Confirmed Last Taken Type varenicline 0.5 mg (11)-1 mg (42) See Rx Instructions PO PER PKG DIR 08/24/23 09/30/23 10/02/23 Rx tablets in a dose pack ([place] #53 ea Starting Month Box) sertraline 100 mg tablet (Zoloft) 100 mg PO DAILY #90 tabs 09/21/23 09/30/23 10/03/23 Rx sertraline 25 mg tablet 25 mg PO DAILY #90 tabs 09/21/23 09/30/23 10/03/23 Rx Allergies Allergy/AdvReac Type Severity Reaction Status Date / Time No Known Allergies Allergy Verified 09/21/23 13:49 Current Medications Generic Name Dose Route Start Last Admin Trade Name Freq PRN Reason Stop Dose Admin Sodium Chloride 1,000 mls @ 30 mls/hr 10/03/23 09:00 10/03/23 09:31 Sodium Chloride 0.9% IV 10/04/23 08:59 30 mls/hr .Q24H SARITA Administration PFSH Anesthesia Medical History Smoker IUD (intrauterine device) in place DVT (deep venous thrombosis) invoked Anxiety Depression History of melanoma 2018 Surgical History History of 3 sections History of wisdom tooth extraction History of tonsillectomy and adenoidectomy History of mastoidectomy Family History Mother Leukemia Aneurysm Hypertension Father Cancer esophageal cancer Grandfather Colon cancer Family/Other Cancer maternal uncle, lung cancer spread to bone Denies family history of Diabetes Hyperlipidemia Chronic kidney disease (CKD) Anesthesia complication Bleeding disorder Stroke Social History Smoking and tobacco/nicotine status: current every day tobacco/nicotine user cigarettes Quit status (tobacco/nicotine): considering quitting Alcohol intake: never Substance/Drug Use: never Lives independently: Yes Household members: children Number of children: 3 Current occupational status: employed Current occupation: benefits/claims for [employer] Special naomi needs: No Agree to transfusion: Yes Female Reproductive History Date of last menstrual period: 08/11/23 Data Anesthesia Cardiac Studies: No Data to Display
[2023-10-03] MEDS: midazolam 1 mg/mL INJ 2 mL 2 MG IVP (10:10)
--- NOTE | 2023-10-03 10:16 | P.HPUD_ITS ---
Surgery/Procedure H&P Update DATE OF PROCEDURE: October 03, 2023 DATE H&P PERFORMED: 09/13/23 H&P UPDATE INFORMATION: I have reviewed H&P completed within last 30 days, I have examined patient prior to procedure, No changes to prior documentation and H&P is in [facility] EMR on date indicated PLANNED PROCEDURE: Operation Date: 10/03/23 10:15 Proposed Procedures p Laparoscopic Cholecystectomy 73938, K80.20(Not Applicable) - Sean Stewart MD
[2023-10-03] MEDS: ceFAZolin 2,000 MG in sodium chloride 0.9% (plus) 50 ML 100 MG IV (10:41)
[2023-10-03] MEDS: BUPivacaine 0.25% INJ 10 mL INJECTION (11:06)
[2023-10-03] MEDS: lidocaine-epi 1% PF 1:200,000 30 mL SDV INJECTION (11:06)
--- NOTE | 2023-10-03 12:05 | PM.OP ---
Operative Report Date of procedure: October 03, 2023 Pre-op diagnosis: Symptomatic cholelithiasis Post-op diagnosis: Same Post-op findings: There was a posterior branch of the cystic artery, otherwise normal anatomy Procedure done: Laparoscopic cholecystectomy Specimens removed/disposition: Gallbladder Surgeon: Sean Stewart MD Orthopaedic Physician Assistant: KARISSA OR STaff Estimated blood loss: 10 Complications: none Brief History: This is a 33-year-old female with history of biliary colic who presented for evaluation for laparoscopic cholecystectomy. After discussion of all risk and benefits as documented in my preop note we decided to proceed. Procedure: Patient was brought into the OR table, placed in a supine position. General anesthesia was given. The abdomen was prepped and draped in the usual sterile fashion. Timeout was conducted. The abdomen was accessed via 15 mm infraumbilical incision with an open technique, Hutchinson trocar was placed and fixed to the fascia with #0 Vicryl. Pneumoperitoneum was achieved and no evidence of visceral injury during entry was noted. Additional trocars were placed in a epigastrium right upper quadrant and right flank positions under direct visualization. The gallbladder was grasped from the fundus and retracted cephalad, I then retracted the infundibulum of the gallbladder in the inferolateral direction exposing the hepatocystic triangle. The peritoneum anterior to the hepatocystic triangle was then opened with electrocautery, this opening was carried in the medial and lateral direction to the edges of the liver and then on the sides of the gallbladder to allow for better exposure with careful dissection with electrocautery and also with the [place] dissector I was able to encircle the cystic duct and cystic artery, I also was able to elevate the lower third of the gallbladder from the liver bed, there was a posterior branch of the cystic artery that was also on Seroquel. At this point we achieved a critical view of safety. The cystic artery, posterior branch of the cystic artery and cystic duct were double clipped proximally and single clipped distally and transected. The gallbladder was then removed from the liver bed using electrocautery. No evidence of bleeding or bile leak was noted after the gallbladder was removed and the clips were in good position. The gallbladder was retrieved through the umbilical trocar site in an Endo Catch bag. I then proceeded to close the umbilical trocar site with a 0 Vicryl using a Rajiv-Juan Francisco suture passer under direct visualization. The epigastrium and right upper quadrant trocars were removed under direct visualization, the right front trocar was used to evacuate the pneumoperitoneum and subsequently removed. The wounds were then closed in layers using #4-0 Monocryl for the skin and Dermabond was applied. At the end of the procedure all counts were correct, the patient tolerated well the procedure and was transferred to the PACU in stable condition
[2023-10-03] MEDS: fentaNYL 50 mcg/mL INJ 2mL IVP (12:32)
[2023-10-03] MEDS: oxyCODONE 5 mg IR Tab/Cap PO (13:21)
--- NOTE | 2023-10-03 13:45 | ANE.PACU2 ---
Inpatient post-anesthesia follow up: Airway intact: Yes Vital signs: Temperature 97.6 F Pulse Rate 72 Respiratory Rate 18 Blood Pressure 112/69 Pulse Oximetry 98 Oxygen Delivery Me thod Room Air Oxygen Flow Rate Fraction of Inspir ed Oxygen Hydration adequate: Yes Nausea and vomiting: No Pain level: 1 Mental status: Baseline
== END 2023-10-03 13:46 | disposition home or self-care (01) ==
PROVIDERS: Anesthesiology; PCP Family Medicine; Visit Provider Surgery
PROC: 0FT44ZZ Resection of Gallbladder, Percutaneous Endoscopic Approach (ICD-10-PCS; CPT 47562; principal; 2023-10-03 10:05)
DX: K80.10 Calculus of gallbladder with chronic cholecystitis without obstruction (principal); F41.9 Anxiety disorder, unspecified; F32.A Depression, unspecified; Z86.718 Personal history of other venous thrombosis and embolism
CPT/HCPCS: 47562; 81025; 88304; J0131; J0690; J1100; J1885; J2250; J2405; J2704; J3010; J3490; J7030

== ENCOUNTER 2024-01-08 08:34 | Emergency (ER) | payer BC, MEDICAID, SELFPAY ==
[2024-01-08 09:09] VITALS: BP 149/88; PULSE 85; RESP 18; TEMP 36.8; O2SAT 100; BMI 28.3
[2024-01-08 09:12] VITALS: BP 149/88; PULSE 85; RESP 18; TEMP 36.8; O2SAT 100
--- NOTE | 2024-01-08 09:21 | W.ED.EYEPROB ---
HPI - Eye Problem General: Chief complaint: Eye Problems Stated complaint: left eye injury Time Seen by Provider: 01/08/24 09:11 History of Present Illness: 33-year-old female who presents to the emergency room with left eye pain. She has had pain and redness since yesterday whenever her 2-year-old accidentally put her finger in her eye. No vision loss. Related Data Previous Rx's Medication Instructions Recorded meloxicam 7.5 mg tablet 7.5 mg PO DAILY #7 tabs 10/03/23 oxycodone 5 mg tablet 5 mg PO Q8H PRN pain #14 tabs 10/03/23 varenicline 1 mg tablet (Chantix 1 mg PO BID #56 tabs 10/12/23 Continuing Month Box) amoxicillin 875 mg-potassium 1 tab PO BID 10 days #20 tabs 10/17/23 clavulanate 125 mg tablet sertraline 100 mg tablet (Zoloft) 100 mg PO DAILY #90 tabs 11/29/23 sertraline 25 mg tablet 25 mg PO DAILY #90 tabs 11/29/23 diclofenac sodium 50 mg 50 mg PO BID PRN pain #14 tabs 01/08/24 tablet,delayed release polymyxin B sulfate 10,000 1 drp ophthalmic (eye) Q3H 7 days 01/08/24 unit-trimethoprim 1 mg/mL eye drops #10 mL Allergies Allergy/AdvReac Type Severity Reaction Status Date / Time No Known Allergies Allergy Verified 10/21/23 11:03 Review of Systems Narrative: Constitutional symptoms: Negative except as documented in HPI. Skin symptoms: Negative except as documented in HPI. Eye symptoms: Negative except as documented in HPI. ENMT symptoms: Negative except as documented in HPI. Respiratory symptoms: Negative except as documented in HPI. Cardiovascular symptoms: Negative except as documented in HPI. Gastrointestinal symptoms: Negative except as documented in HPI. Genitourinary symptoms: Negative except as documented in HPI. Musculoskeletal symptoms: Negative except as documented in HPI. Neurologic symptoms: Negative except as documented in HPI. Psychiatric symptoms: Negative except as documented in HPI. Endocrine symptoms: Negative except as documented in HPI. PFS ED PFSH: Medical History Smoker IUD (intrauterine device) in place DVT (deep venous thrombosis) invoked Anxiety Depression History of melanoma 2018 Surgical History History of 3 sections History of wisdom tooth extraction History of tonsillectomy and adenoidectomy History of mastoidectomy Family History Mother Leukemia Aneurysm Hypertension Father Cancer esophageal cancer Grandfather Colon cancer Family/Other Cancer maternal uncle, lung cancer spread to bone Denies family history of Diabetes Hyperlipidemia Chronic kidney disease (CKD) Anesthesia complication Bleeding disorder Stroke Social History Smoking and tobacco/nicotine status: former use of tobacco/nicotine Quit status (tobacco/nicotine): considering quitting Alcohol intake: never Substance/Drug Use: never Lives independently: Yes Household members: children Number of children: 3 Current occupational status: employed Current occupation: benefits/claims for [employer] Special naomi needs: No Agree to transfusion: Yes Physical Exam Narrative: EXAM NARRATIVE: General: Alert, no acute distress. Skin: warm and dry Head: Normocephalic Neck: Trachea midline Eye: Extraocular movements are intact. Sclera is erythematous with some eyelid erythema and edema as well. Vision is grossly normal. Ears, nose, mouth and throat: Oral mucosa moist Respiratory: Respirations are non-labored Musculoskeletal: Normal ROM Neurological: Alert and oriented, No focal neurological deficit observed. Psychiatric: Cooperative, appropriate mood & affect. Course Vital Signs: Vital signs: Vital Signs Temperature 98.3 F 01/08/24 09:12 Pulse Rate 86 01/08/24 10:05 Respiratory Rate 18 01/08/24 09:12 Blood Pressure 149/88 01/08/24 10:05 Pulse Oximetry 100 01/08/24 10:05 Oxygen Delivery Me thod Room Air 01/08/24 09:12 MDM - Eye Problem Medical Decision Making Procedure: UV fluorescein examination of the eye tetracaine applied to the affected eye. once significant analgesia occurred fluorescein dye was applied to the eye Examination under our local eye reveals no foreign body but there is a large corneal abrasion at around 6:00 over her pupil. Polytrim applied to the eye here and a prescription was given Assessment and plan: Corneal abrasion ?Polytrim febrile here in the emergency room. - Discharged home - Discussed plan with patient. Answered any questions. - Evaluation and treatment of this problem were appropriate in the emergency setting. No radiology studies performed this visit Discharge Plan Discharge Patient Disposition: Home Clinical Impression: Corneal abrasion Condition: Stable Prescriptions: New polymyxin B sulf-trimethoprim 10,000 unit- 1 mg/mL drops 1 drp ophthalmic (eye) Q3H 7 Days Qty: 10 0RF Rx Instructions: while awake; do not exceed 6 doses in 24 hours diclofenac sodium 50 mg tablet,delayed release (DR/EC) 50 mg PO BID PRN (Reason: pain) Qty: 14 0RF No Action varenicline [Chantix Continuing Month Box] 1 mg tablet 1 mg PO BID Qty: 56 0RF amoxicillin-pot clavulanate 875-125 mg tablet 1 tab PO BID 10 Days Qty: 20 0RF sertraline [Zoloft] 100 mg tablet 100 mg PO DAILY Qty: 90 0RF Rx Instructions: take with 25mg tab for a total of 125mg sertraline 25 mg tablet 25 mg PO DAILY Qty: 90 0RF Rx Instructions: take with 100mg tab for total of 125mg meloxicam 7.5 mg tablet 7.5 mg PO DAILY Qty: 7 0RF oxycodone 5 mg tablet 5 mg PO Q8H PRN (Reason: pain) Qty: 14 0RF Discharge Orders: Discharge ED (Routine); Ordered 01/08/24 Ordered By: Madie Palm Referrals: Mecca Palacios MD [Primary Care Provider] - Patient Instructions: Corneal Abrasion (ED) Activity Restrictions/Additional Instructions: Thank you for choosing [facility] for your healthcare needs today. Please realize this is an emergency room and that we are providing you with a medical screening exam and this may not be complete and all inclusive of all the testing and or work up that you may need to determine your ailment or severity of your illness. You have been screened and evaluated and felt safe for discharge. Health conditions do change or evolve sometimes and as such it is important that you follow up with your Primary Doctor to be re checked, 3-5 days is a general good time frame for follow up. You are always welcome to return to the ED for re assessment if your symptoms are worsening or you have new concerns Coding Level of Care Code ED Marriage And Family Counselor for Leonard Cooper
[2024-01-08] MEDS: tetracaine 0.5% Op Soln 4 mL Btl 1 DROP EYE-LEFT (09:24)
[2024-01-08] MEDS: fluorescein 1 mg Strip EYE-LEFT (09:24)
[2024-01-08 10:05] VITALS: BP 149/88; PULSE 86; O2SAT 100
[2024-01-08] MEDS: polymyxin-trimethoprim Op Soln 10 mL Btl 1 DROP EYE-LEFT (10:05)
== END 2024-01-08 10:09 | disposition home or self-care (01) ==
PROVIDERS: Emergency Provider Emergency Medicine; PCP Family Medicine
DX: S05.02XA Injury of conjunctiva and corneal abrasion without foreign body, left eye, initial encounter (principal); Z87.891 Personal history of nicotine dependence; W50.0XXA Accidental hit or strike by another person, initial encounter
CPT/HCPCS: 99283

== ENCOUNTER 2024-04-07 09:43 | Emergency (ER) | payer BC, MEDICAID, SELFPAY ==
[2024-04-07 10:15] VITALS: BP 102/64; PULSE 103; RESP 17; TEMP 36.8; O2SAT 97; BMI 28.3
[2024-04-07] MEDS: fluorescein 1 mg Strip EYE-LEFT (12:09)
[2024-04-07] MEDS: tetracaine 0.5% Op Soln 4 mL Btl 1 DROP EYE-LEFT (12:09)
[2024-04-07 12:41] VITALS: BP 123/77; PULSE 82; RESP 16; O2SAT 92
--- NOTE | 2024-04-07 13:02 | W.ED.EYEPROB ---
HPI - Eye Problem General: Chief complaint: Eye Problems Stated complaint: swollen left eye Time Seen by Provider: 04/07/24 12:10 Source: patient Mode of arrival: ambulatory Limitations: no limitations History of Present Illness: Patient presents emergency department today for evaluation treatment of returning and worsening left eye pain. Patient reports that back at the end of December her young daughter accidentally scratched her left cornea with her fingernail. She was seen and evaluated here in the emergency department where they did find a corneal abrasion located at the 6:00 positioning of her left eye. Patient was treated with Polytrim. States that she did better for quite a while but still always felt like there was a little bit of scratchiness when she blinks her eye. However, over the last day or 2, patient's eye has become painful, red, she is having clear tearing, photophobia, difficulty keeping her eye open. She states that with Gisel coming she was concerned about conjunctivitis but no others at home with similar findings. She is also concerned that she is still dealing with issues with her corneal abrasion. Patient wears glasses but denies use of contact lenses. Related Data Previous Rx's Medication Instructions Recorded meloxicam 7.5 mg tablet 7.5 mg PO DAILY #7 tabs 10/03/23 oxycodone 5 mg tablet 5 mg PO Q8H PRN pain #14 tabs 10/03/23 varenicline 1 mg tablet (Chantix 1 mg PO BID #56 tabs 10/12/23 Continuing Month Box) amoxicillin 875 mg-potassium 1 tab PO BID 10 days #20 tabs 10/17/23 clavulanate 125 mg tablet sertraline 100 mg tablet (Zoloft) 100 mg PO DAILY #90 tabs 11/29/23 sertraline 25 mg tablet 25 mg PO DAILY #90 tabs 11/29/23 diclofenac sodium 50 mg 50 mg PO BID PRN pain #14 tabs 01/08/24 tablet,delayed release erythromycin 5 mg/gram (0.5 %) eye 1 applic ophthalmic (eye) DAILY 04/07/24 ointment (3.5 gram tube) #50 grams rgxymwvo-enkrmpcoi-lohizwro 3.5 1 drp ophthalmic (eye) Q8H #5 mL 04/07/24 mg/mL-10,000 unit/mL-0.1% eye drops (Maxitrol) Allergies Allergy/AdvReac Type Severity Reaction Status Date / Time No Known Allergies Allergy Verified 10/21/23 11:03 Review of Systems General: Reports: 10 or more systems reviewed and unremarkable except in HPI and below PFSH ED PFSH: Medical History Smoker IUD (intrauterine device) in place DVT (deep venous thrombosis) invoked Anxiety Depression History of melanoma 2018 Surgical History History of 3 sections History of wisdom tooth extraction History of tonsillectomy and adenoidectomy History of mastoidectomy Family History Mother Leukemia Aneurysm Hypertension Father Cancer esophageal cancer Grandfather Colon cancer Family/Other Cancer maternal uncle, lung cancer spread to bone Denies family history of Diabetes Hyperlipidemia Chronic kidney disease (CKD) Anesthesia complication Bleeding disorder Stroke Social History Smoking and tobacco/nicotine status: former use of tobacco/nicotine Quit status (tobacco/nicotine): considering quitting Alcohol intake: never Substance/Drug Use: never Lives independently: Yes Household members: children Number of children: 3 Current occupational status: employed 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 Conjunctiva is significantly injected but no signs of any matting or accumulation to the eyelashes. Patient has clear tearing present. Difficulty keeping her own eye open. After tetracaine drops were placed, patient was able to tolerate opening of her eye. PERRLA. EOMs are intact. No signs of an internal stye or external hordeolum. No chalazion. No signs of any retained foreign bodies. Balderrama lamp examination reveals continued findings of abrasion in the 6:00 positioning of the left cornea. Neck/C-Spine: COMMON NORMALS: no JVD Lymph: LYMPHATIC: no lymphadenopathy noted Resp: COMMON NORMALS: normal respiratory effort, No retractions and No use of accessory muscles Cardio: COMMON NORMALS: no JVD, regular rate and regular rhythm RATE: regular rate RHYTHM: regular rhythm GI: COMMON NORMALS: Normal to inspection, nondistended, normoactive bowel sounds present : COMMON NORMALS: Yes no CVA tenderness BLADDER/KIDNEY EXAM: Yes no CVA tenderness Back/Pelvis: COMMON NORMALS: no CVA tenderness and thoraco-lumbar ROM normal Extremity: COMMON NORMALS: normal to inspection, full ROM and capillary refill normal Neuro: COMMON NORMALS: patient oriented x3 SENSORIUM/ORIENTATION: Yes alert Psych: COMMON NORMALS: mental status grossly normal, cooperative, normal affect and activity/motor behavior normal Course Vital Signs: Vital signs: Vital Signs Temperature 98.2 F 04/07/24 10:15 Pulse Rate 82 04/07/24 12:41 Respiratory Rate 16 04/07/24 12:41 Blood Pressure 123/77 04/07/24 12:41 Pulse Oximetry 92 04/07/24 12:41 Oxygen Delivery Me thod Room Air 04/07/24 12:41 MDM - Eye Problem Medical Decision Making Patient still has findings of active left corneal abrasion. Given that it has been several months with an acute worsening of symptoms here recently, I did reach out to ophthalmology. I spoke with ANGELICA Yousif. 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 Recommended patient be put on Maxitrol 3 times a day with erythromycin at night. Indicated patient might need to be on nightly erythromycin for several months. He did offer follow-up for this patient if symptoms are not noticeably improved but, patient may deal with recurrent symptoms for quite some time. I did discuss all this with the patient including recommended treatment plan and follow-up. She verbalized understanding and agreement to treatment plan. Differential Diagnosis Likely corneal abrasion; Unlikely conjunctivitis, acute iritis, hyphema, subconjunctival hemorrhage or ruptured globe No radiology studies performed this visit Discharge Plan Discharge Patient Disposition: Home Clinical Impression: Corneal abrasion Condition: Stable Prescriptions: New neomycin-polymyxin B-dexameth [Maxitrol] 3.5mg/mL-10,000 unit/mL-0.1 % drops,suspension 1 drp ophthalmic (eye) Q8H Qty: 5 0RF erythromycin 5 mg/gram (0.5 %) ointment 1 applic ophthalmic (eye) DAILY Qty: 50 0RF No Action varenicline [Chantix Continuing Month Box] 1 mg tablet 1 mg PO BID Qty: 56 0RF amoxicillin-pot clavulanate 875-125 mg tablet 1 tab PO BID 10 Days Qty: 20 0RF sertraline [Zoloft] 100 mg tablet 100 mg PO DAILY Qty: 90 0RF Rx Instructions: take with 25mg tab for a total of 125mg sertraline 25 mg tablet 25 mg PO DAILY Qty: 90 0RF Rx Instructions: take with 100mg tab for total of 125mg meloxicam 7.5 mg tablet 7.5 mg PO DAILY Qty: 7 0RF oxycodone 5 mg tablet 5 mg PO Q8H PRN (Reason: pain) Qty: 14 0RF diclofenac sodium 50 mg tablet,delayed release (DR/EC) 50 mg PO BID PRN (Reason: pain) Qty: 14 0RF Discharge Orders: Discharge ED (Routine); Ordered 04/07/24 Ordered By: Emelyn Mendes Referrals: Mecca Palacios MD [Primary Care Provider] - Patient Instructions: Corneal Abrasion (ED) Activity Restrictions/Additional Instructions: Exam today shows continued findings of your left eye corneal abrasion. I reached out spoke to ANGELICA Yousif with ophthalmology. 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 He states this often happens the first time you open your eye when you awake from extended sleep. Unfortunately, he states that this can happen or currently for many months. At this time, who recommend using eyedrops in the left eye at each meal and applying the erythromycin ointment at bed time. If you need to use erythromycin ointment for comfort for the next couple of days, he indicated you can use a couple more times throughout the day if needed. However, he recommends that for the next 3 weeks you apply the erythromycin ointment before bed in an effort to help prevent the removal of the healing tissue from your eyes in the morning. I also indicated that if your medication ran out, there is an [id number] product called Refresh PM that you can use nightly as well. He states that if you are not noticing improvement after a week or so of treatment, you are more than welcome to call his office and schedule follow-up appointment. If you have any acute concerns including any developing fever, sudden swelling of the left eye area, worsening redness or spreading redness to the side of your face you need to be seen and reevaluated back in the ER. Cj DOMINGUEZ [facility] [phone] Coding Level of Care Code ED Plumbing Engineer for Leonard Cooper
[2024-04-07 13:24] VITALS: BP 126/92; PULSE 79; RESP 16; O2SAT 93
== END 2024-04-07 13:21 | disposition home or self-care (01) ==
PROVIDERS: Emergency Provider Physician Assistant; PCP Family Medicine
DX: S05.02XA Injury of conjunctiva and corneal abrasion without foreign body, left eye, initial encounter (principal); X58.XXXA Exposure to other specified factors, initial encounter; Z85.820 Personal history of malignant melanoma of skin
CPT/HCPCS: 99283

== ENCOUNTER → 2024-05-29 15:08 | Outpatient (BNVA) | payer OTHER, SELFPAY | PROVIDERS: PCP Family Medicine; Visit Provider Family Medicine | DX: Z00.00 Encounter for general adult medical examination without abnormal findings (principal); Z11.3 Encounter for screening for infections with a predominantly sexual mode of transmission; Z12.4 Encounter for screening for malignant neoplasm of cervix | CPT/HCPCS: 80053; 84443; 85025; 87070; 87205; 87491; 87591; 87624; 87661 ==

== ENCOUNTER 2024-06-26 18:40 | Emergency (ER) | payer OTHER, BC, MEDICAID, SELFPAY ==
[2024-06-26 18:45] VITALS: BP 128/71; PULSE 76; RESP 17; TEMP 36.6; O2SAT 99; BMI 30.1
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
[2024-06-26] MEDS: ampicillin-sulbactam 3 GM in sodium chloride 0.9% (plus) 50 ML IV (19:10)
[2024-06-26 19:19] LABS: Basophils % 0.3 %; Eosinophils # 0.2 10^3/uL (0.0-0.8); Eosinophils % 1.7 %; Hematocrit 35.6 % (36-47); Lymphocytes # 2.7 10^3/uL (0.8-4.8); Lymphocytes % 29.8 %; Mean Corpuscular HGB Conc 32.9 g/dL (30-55); Mean Corpuscular Hemoglobin 28.8 pg (27-33); Mean Corpuscular Volume 87.7 fl (85-98); Mean Platelet Volume 9.7 fL (7.4-10.4); Monocytes # 0.4 10^3/uL (0.2-0.9); Monocytes % 4.1 %; Neutrophils # 5.84 10^3/uL (1.8-7.7); Neutrophils % 63.8 %; Nucleated Red Blood Cells % 0 %; Platelet Count 245 10^3/cmm (157-399); Red Blood Count 4.06 10^6/uL (3.85-5.65); Red Cell Distribution Width 13.1 % (12.1-15.1); White Blood Count 9.17 10^3/uL (3.29-11.43)
[2024-06-26 19:22] LABS: Erythrocyte Sedimentation Rate 10 mm/hr (0-15)
[2024-06-26] MEDS: HYDROcodone-acetaminophen 5-325 mg Tablet 1 TAB PO (19:55)
[2024-06-26 20:15] VITALS: BP 128/71; PULSE 76; O2SAT 99
[2024-06-26 21:53] LABS: Hepatitis A Antibody IgM Non-Reactive (Nonreactive); Hepatitis B Core AB, Total Non-Reactive (Nonreactive); Hepatitis B Surface AB 94.1 (11.5-1000); Hepatitis B Surface Antigen Non-Reactive (Nonreactive); Hepatitis C Virus Antibody Non-Reactive (Nonreactive)
== END 2024-06-26 20:15 | disposition home or self-care (01) ==
PROVIDERS: Emergency Provider Emergency Medicine; PCP Family Medicine
DX: L03.114 Cellulitis of left upper limb (principal); F17.210 Nicotine dependence, cigarettes, uncomplicated; Z85.820 Personal history of malignant melanoma of skin
CPT/HCPCS: 36415; 73130; 85025; 85651; 86140; 86705; 86706; 86709; 86803; 87340; 96365; 99284; J0295

== ENCOUNTER → 2024-09-24 16:06 | Outpatient (BNVA) | payer OTHER, BC, MEDICAID, SELFPAY | PROVIDERS: PCP Family Medicine; Visit Provider Podiatrist Foot & Ankle Surgery | DX: M79.671 Pain in right foot (principal); M72.2 Plantar fascial fibromatosis | CPT/HCPCS: 73630 ==